=== PATIENT | female | born 1950 | race Caucasian/White ===

== ENCOUNTER 2017-01-10 17:36 | Observation (INO) | payer MEDICARE, OTHER ==
[2017-01-10] MEDS ORDERED: MORPHINE 2 MG/ML SYRINGE IVP STA ×2 (18:28→22:09)
--- NOTE | 2017-01-10 18:31 | ED Physician Documentation ---
PD HPI ABD PAIN - Stated complaint Stated Complaint: ABD PX - Chief complaint Chief Complaint: Abd Pain - History obtained from History obtained from: Patient, Family () - History of Present Illness Timing - onset: Today (Developed epigastric pain this morning which worsened throughout the day moved to the right side. One small episode of emesis, no bowel movement today. 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 HEENT: Tonsil/Adenoidectomy - Present Medications Home Medications: Ambulatory Orders Medication Instructions Recorded Confirmed Alendronate [Fosamax] 70 mg PO DAILY 01/10/17 01/10/17 Estrogens, Conjugated [Premarin] 0.5 mg PO DAILY 01/10/17 01/10/17 Lamotrigine [Lamictal] 150 mg PO DAILY 01/10/17 01/10/17 Levothyroxine [Synthroid] 50 mcg PO DAILY 01/10/17 01/10/17 No Known Home Medications [No 01/10/17 01/10/17 Known Home Medications] Venlafaxine [Effexor] 75 mg PO DAILY 01/10/17 01/10/17 traZODone [Desyrel] 50 mg PO DAILY 01/10/17 01/10/17 - Allergies Allergies/Adverse Reactions: Allergies Allergy/AdvReac Type Severity Reaction Status Date / Time No Known Drug Allergies Allergy Verified 01/10/17 17:44 - Social History Does the pt smoke?: No Smoking Status: Never smoker Does the pt drink ETOH?: No Does the pt have substance abuse?: No - Family History Family history: reports: Non contributory PD ED PE NORMAL - Vitals Vital signs reviewed: Yes - General General: Alert and oriented X 3, No acute distress - HEENT HEENT: PERRL, EOMI - Neck Neck: Supple, no meningeal sign, No bony TTP - Cardiac Cardiac: RRR, No murmur - Respiratory Respiratory: No respiratory distress, Clear bilaterally - Abdomen Abdomen: Normal bowel sounds, Soft, Other (Tender right upper quadrant with positive Real sign, no other surgical signs.) - Back Back: No CVA TTP, No spinal TTP - Derm Derm: Normal color, Warm and dry - Extremities Extremities: No deformity, No tenderness to palpate, No edema, No calf tenderness / cord - Neuro Neuro: Alert and oriented X 3, Normal speech - Psych Psych: Normal mood, Normal affect Results - Vitals Vitals: Vital Signs - 24 hr 01/10/17 01/10/17 01/10/17 17:41 18:55 18:56 Temperature 36.6 C Heart Rate 78 78 Respiratory 22 18 Rate Blood Pressure 113/68 O2 Saturation 100 88 L 98 01/10/17 19:51 Temperature Heart Rate 75 Respiratory 18 Rate Blood Pressure O2 Saturation 100 Oxygen O2 Source Room air Oxygen Flow Rate 3 - Labs Labs: Laboratory Tests 01/10/17 01/10/17 01/10/17 18:30 18:30 20:10 WBC 13.0 H RBC 4.32 Hgb 13.4 Hct 39.0 MCV 90.2 MCH 31.1 H MCHC 34.5 RDW 12.4 Plt Count 254 MPV 7.9 Neut # Not Reportable Lymph # Not Reportable Talbot # Not Reportable Eos # Not Reportable Baso # Not Reportable Absolute Nucleated RBC Not Reportable Band Neuts % (Manual) 17 H Neutrophils # (Manual) 11.4 H Lymphocytes # (Manual) 1.2 L Monocytes # (Manual) 0.4 Nucleated RBCs Not Reportable Platelet Estimate NORMAL (130-450,000) RBC Morph Micro Appear NORMAL APPEARANCE Sodium 135 Potassium 3.5 Chloride 102 Carbon Dioxide 25 Anion Gap 8.0 BUN 11 Creatinine 0.6 Estimated GFR (MDRD) 99 Glucose 109 H Calcium 9.3 Total Bilirubin 0.9 AST 33 ALT 28 Alkaline Phosphatase 53 Total Protein 6.7 Albumin 4.6 Globulin 2.1 Albumin/Globulin Ratio 2.2 Lipase 38 Urine Color YELLOW Urine Clarity CLEAR Urine pH 6.5 Ur Specific Edison 1.020 Urine Protein NEGATIVE Urine Glucose (UA) NEGATIVE Urine Ketones >=80 H Urine Occult Blood NEGATIVE Urine Nitrite NEGATIVE Urine Bilirubin NEGATIVE Urine Urobilinogen 0.2 (NORMAL) Ur Leukocyte Esterase NEGATIVE Ur Microscopic Review NOT INDICATED Urine Culture Comments NOT INDICATED - Rads (name of study) RUQ sono Radiology: EMP read contemporaneously (pericholecystic fluid without stones or GB wall thickening.) Ct A/P Radiology: EMP read contemporaneously (Normal amount of fluid adjacent to the pancreatic head and duodenum, normal appendix, large colonic stool.) PD MEDICAL DECISION MAKING - ED course ED course: 66-year-old woman presents with acute abdominal pain, initial evaluation suggestive of biliary etiology but ultrasound negative for cholecystitis specifically. Noted to have leukocytosis with mild bandemia. Otherwise negative labs. CT results as shown. Case discussed with on-call surgeon, Dr. Schwab at 1015 p.m., agrees with Zosyn and inpatient observation. Spoke with Dr Marquez [id number]. Departure - Departure Disposition: ED Place in Observation Clinical Impression: Bandemia Abdominal pain Qualifiers: Abdominal location: upper abdomen, unspecified Qualified Code(s): R10.10 - Upper abdominal pain, unspecified Condition: Fair
[2017-01-10] MEDS ORDERED: MORPHINE 2 MG/ML SYRINGE ONE ×3 (18:36→22:20)
[2017-01-10] MEDS ORDERED: ONDANSETRON 4 MG/2 ML VIAL IVP STA ×2 (18:36→22:09)
[2017-01-10 18:37] LABS: EOSINOPHILS % (AUTO) 0.1 %; HGB - HEMOGLOBIN 13.4 g/dL (12.0-16.0); RED CELL DISTRIBUTION WIDTH 12.4 % (12.0-15.0)
[2017-01-10] MEDS ORDERED: ONDANSETRON 4 MG/2 ML VIAL ONE ×2 (18:37→22:20)
[2017-01-10 18:41] LABS: BASOPHILS % (AUTO) 0.2 %; LYMPHOCYTES % (AUTO) 3.8 %; MEAN CORPUSCULAR HEMOGLOBIN 31.1 pg (27.0-31.0); MEAN CORPUSCULAR HGB CONC 34.5 g/dL (32.0-36.0); MEAN CORPUSCULAR VOLUME 90.2 fL (81.0-99.0); MEAN PLATELET VOLUME 7.9 fL (7.9-10.8); MONOCYTES % (AUTO) 5.8 %; NEUTROPHILS % (AUTO) 90.1 %; RED BLOOD COUNT 4.32 10^6/uL (4.20-5.40)
[2017-01-10 18:51] LABS: ALBUMIN/GLOBULIN RATIO 2.2 (1.0-2.2); BILIRUBIN,TOTAL 0.9 mg/dL (0.2-1.0); CALCIUM 9.3 mg/dL (8.5-10.3); CREATININE 0.6 mg/dL (0.4-1.0); POTASSIUM 3.5 mmol/L (3.5-5.0); TOTAL PROTEIN 6.7 g/dL (6.7-8.2)
[2017-01-10 19:21] LABS: BAND NEUTROPHILS % (MANUAL) 17 %; LYMPHOCYTES % (MANUAL) 9 %; NEUTROPHILS % (MANUAL) 71 %; NP AUTO DIFFERENTIAL? YES; NP MAN DIFFERENTIAL? NO; PLATELET ESTIMATE, MANUAL NORMAL (130-450,000) (NORMAL)
[2017-01-10 20:15] LABS: PH,URINE 6.5 PH (5.0-7.5)
[2017-01-10 20:26] LABS: BILIRUBIN,URINE NEGATIVE (NEGATIVE); UA CHARGE (STRIP ONLY) YES; UR CULTURE IF IND NOT INDICATED
--- NOTE | 2017-01-10 20:27 | Ultrasound Preliminary Report ---
Exam: US Abdomen Limited IMPRESSION: Pericholecystic fluid. No cholelithiasis or gallbladder wall thickening. [facility] SITE ID: [id number]
--- NOTE | 2017-01-10 20:30 | Ultrasound Report ---
EXAM: ABDOMEN ULTRASOUND LIMITED, RUQ EXAM DATE: 01/10/2017 08:11 PM. CLINICAL HISTORY: RUQ TENDER TO PALPATION. NAUSEA. COMPARISON: None. TECHNIQUE: Real-time scanning was performed with static images obtained. FINDINGS: Liver: Normal in size and echotexture. 15.6 cm. Main portal vein flow: Hepatopetal. Gallbladder: Pericholecystic fluid noted. No stones, wall thickening, or sonographic Real's sign. Biliary System: CBD measures 6.6 mm. No intrahepatic or extrahepatic ductal dilatation. Other: Calcification in or adjacent to the uncinate process of the pancreas 1.2 x 1.4 x 1.6 cm, other wagner visualized pancreas and right kidney unremarkable. IMPRESSION: Pericholecystic fluid. No cholelithiasis or gallbladder wall thickening. [facility] Referring Provider Line: [phone] SITE ID: [id number]
[2017-01-10] MEDS ORDERED: IOPAMIDOL-300 100 ML VIAL IVP ONE (21:24)
--- NOTE | 2017-01-10 21:58 | CT Preliminary Report ---
Exam: CT Abdomen/Pelvis W/ IMPRESSION: 1. Small amount of fluid adjacent to the pancreas head and duodenum. Differential would include duode nitis and pancreatitis. Correlate for laboratory studies and presentation. 2. Normal appendix. Large amount as on the colon. No obstruction. [facility] SITE ID: [id number]
[2017-01-10] MEDS ORDERED: PIPERACILLIN/TAZOBACTAM 3.375 GM in SODIUM CHLORIDE 0.9% MINIBAG 100 ML IV STA (22:14)
[2017-01-10] MEDS ORDERED: PROCHLORPERAZINE 10 MG/2 ML VIAL IVP PRN (22:40)
[2017-01-10] MEDS ORDERED: MORPHINE 2 MG/ML SYRINGE IVP PRN (22:40)
[2017-01-10] MEDS ORDERED: ZOLPIDEM 5 MG TABLET PO PRN (22:40)
[2017-01-10] MEDS ORDERED: SODIUM CHLORIDE FLUSH 0.9% 10 ML SYRINGE IVP PRN (22:40)
[2017-01-10] MEDS ORDERED: ONDANSETRON 4 MG/2 ML VIAL IVP PRN (22:40)
[2017-01-10] MEDS ORDERED: oxyCODONE 5 MG TABLET PO PRN ×2 (22:40)
--- NOTE | 2017-01-10 22:50 | CT Report ---
EXAM: CT ABDOMEN AND PELVIS EXAM DATE: 01/10/2017 09:28 PM. CLINICAL HISTORY: IV only, right abdominal pain. COMPARISONS: 01/10/2017 abdominal ultrasound. TECHNIQUE: Routine helical CT imaging was performed through the abdomen and pelvis. IV contrast: 100 mL of Isovue-300. Enteric contrast: No. Reconstructions: Coronal and sagittal. In accordance with CT protocol optimization, one or more of the following dose reduction techniques w ere utilized for this exam: automated exposure control, adjustment of mA and/or KV based on patient s ize, or use of iterative reconstructive technique. FINDINGS: Lung Bases: Unremarkable. Liver: Calcification in the dome of the liver. No liver mass or intrahepatic bile duct dilation noted . Gallbladder/Bile Ducts: Small amount of pericholecystic fluid without definite gallbladder inflammati on or gallstones. Normal caliber common bile duct. Spleen: Normal. Pancreas: Small amount of fluid near the pancreas head and duodenum. No pancreatic mass, atrophy or c alcifications. Adrenal Glands: Normal. Kidneys: Normal. No masses or hydronephrosis. Peritoneal Cavity/Bowel: Small amount of fluid is noted near the pancreas head and uncinate process. No pneumoperitoneum, no pneumatosis or portal venous gas. Incidental duodenal diverticulum. Large eli unt of stool is present throughout the colon. The appendix is well visualized and normal. There are m ultiple diverticula seen which most severely affect the sigmoid colon. No wall thickening or adjacen t inflammation seen. No obstruction noted. Pelvic Organs: Normal. The bladder and visualized pelvic organs are within normal limits. Vasculature: No aneurysms or other significant abnormality. Bones: No significant abnormality. Other: None. IMPRESSION: 1. Small amount of fluid adjacent to the pancreas head and duodenum. Differential would include duode nitis and pancreatitis. Correlate with laboratory studies and presentation. 2. Normal appendix. Large amount of stool in the colon. No obstruction. [facility] Referring Provider Line: [phone] SITE ID: [id number]
[2017-01-11] MEDS: SODIUM CHLORIDE 0.9% 1,000 ML IV SCH ×3 (00:37→17:31)
[2017-01-11] MEDS: PANTOPRAZOLE 40 MG VIAL IVP SCH ×3 (00:39→16:07)
[2017-01-11] MEDS: traZODone 50 MG TABLET PO SCH ×2 (02:12→08:46)
[2017-01-11] MEDS: VENLAFAXINE 37.5 MG TABLET PO SCH ×2 (02:13→08:44)
--- NOTE | 2017-01-11 03:19 | HISTORY & PHYSICAL EXAMINATION ---
Chief Complaint - Chief Complaint Chief Complaint: abdominal pain History of Present Illness - Admitted From Admitted From:: emergency department - History Obtained From Records Reviewed: yes History obtained from: patient Exam Limitations: none - History of Present Illness HPI Comment/Other: Patient is a 66-year-old female with a past medical history significant for bipolar 2, hypothyroidism, osteoporosis, craniotomy with repair of brain aneurysm in 2008, history of polio in 1952 with no residual deficits and history of salpingo-oophorectomy secondary to ruptured ectopic who presented to the emergency department with a chief complaint of abdominal pain. She states that she woke up in the morning and felt as though she had a stomach ache. She thought it was most likely gas. She states that the pain was located in the epigastric region of the abdomen. She states that she had cereal and then walk her dogs she states that she had to and walk early because she did not feel well. When she returned home she states that the pain became more severe and moved into the right lower quadrant. She states that the pain remained in the lower abdomen and became sharp it was similar to the pain that she experienced when she had a ruptured ectopic. She states the pain was relentless and was a 9/ 10. She states it was a sharp pain and was associated with nausea she states that she tried to vomit but only got out clear materials. She states that she felt very cold but did not have any fevers. She denies having had any diarrhea she did have a normal bowel movement yesterday but has not had any bowel movements today. She denies any previous history of chronic abdominal pain. She denies any recent changes in her appetite she has had a 20 pound weight loss but this was intentional. She denies any recent stress. She states that she did used to drink 2 glasses of wine a night however she quit this about 2 months ago. She states that she does not smoke and does take a baby aspirin but no NSAIDs. She denies any dark stool she denies any bloody stools. She denies any hematemesis. She states that the pain became so severe that she decided to come to the emergency department. On presentation to the emergency department the patient was afebrile her vital signs were within normal limits however she was in a significant amount of abdominal pain. The patient received several doses of morphine which did help to alleviate the pain however the pain returned once the morphine wore off. Patient also continued to have nausea and received Zofran. The patient's lab work did not reveal any electrolyte abnormalities and UA was negative. The patient however did have a leukocytosis of 13,000 with a bandemia of 17%. The patient initially underwent an ultrasound of her abdomen which revealed pericholecystic fluid but no cholelithiasis or gallbladder wall thickening. The patient did have a calcification adjacent to uncinate process of the pancreas which was 1.2x1.4x1.6 cm in size. The patient then underwent a CT of her abdomen and pelvis which revealed a small amount of fluid adjacent to the pancreas head and duodenum. For which the differential included duodenitis and pancreatitis. The patient had normal lipase and amylase. Surgery was consult in the emergency department and asked that the hospitalist observe the patient overnight give her IV Zosyn, IV fluids, pain control and nausea control and monitor her closely. They asked that we recheck her CBC in the morning. Review of Systems - Constitutional Constitutional: reports: Poor appetite, Weight loss (Intentional). denies: Fever, Chills, Malaise, Weakness, Diaphoresis, Night sweats, Weight gain - Eyes Eyes: denies: Pain, Irritation, Amaurosis, Blurred vision, Spots in vision, Field loss, Vision loss, Dipolpia - Ears, Nose & Throat Ears, Nose & Throat: denies: Ear pain, Hearing loss, Hearing aids, Tinnitus, Vertigo, Nasal pain, Nasal discharge, Nasal congestion, Postnasal drainage, Sore throat, Hoarseness, Mouth lesions - Cardiovascular Cariovascular: denies: Irregular heart rate, Palpitations, Chest pain, Edema, Lightheadedness, Syncope, Exertional dyspnea, Decr. exercise tolerance, Orthopnea - Respiratory Respiratory: denies: Cough, Sputum production, Wheezing, Snoring, Hemoptysis, Orthopnea, SOB at rest, SOB with exertion, Pleuritic pain - Gastrointestinal Gastrointestinal: reports: Abdominal pain, Nausea, Vomiting. denies: Constipation, Diarrhea, Black stools, Bloody stools, Bile emesis, López blood emesis, Coffee grounds emesis, Reflux/heartburn, Bloating, Poor appetite - Genitourinary Genitourinary: denies: Dysuria, Frequency, Urgency, Hematuria, Incontinence, Flank pain, Nocturia - Musculoskeletal Musculoskeletal: denies: Muscle pain, Back pain, Muscle aches, Stiffness, Limited range of motion, Muscle weakness, Joint pain, Joint swelling - Integumentary Integumentary: denies: Rash, Pruritis, Lesions, Dryness - Neurological Neurological: denies: General weakness, Focal weakness, Headache, Dizziness, Numbness, Memory problems, Abnormal gait, Seizures - Psychiatric Psychiatric: denies: Depression, Anxiety - Endocrine Endocrine: denies: Polyuria, Polydypsia, Polyphagia, Intolerance to cold, Intolerance to heat - Hematologic/Lymphatic Hematologic/Lymphatic: denies: Anemia, Bruising, Petechiae History - Past Medical History Cardiovascular: reports: None Respiratory: reports: None Neuro: reports: Other (History of aneurysmal repair with craniotomy ) Endocrine/Autoimmune: reports: HyPOthyroidism GI: reports: Chronic constipation (secondary to meds) HEENT: reports: None Psych: reports: Bipolar disorder Musculoskeletal: reports: Osteoporosis Other Past Medical History: ectopic , bells palsy, polio - Past Surgical History 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 Social History Notes: Patient lives in [facility]. She is retired she lives with her . She has a daughter who lives in [place] and works as a nurse at [employer]. 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 She met her in [place] he is also a teacher. They talk together in [facility] and then in [place] [facility] for 8 years and then moved back to [facility]. The patient's daughter was born in [facility]. - Substance History Use: Uses substance without health or social issues: Alcohol (2 glasses of wine a night till a few months ago) Abuse: Recurrent use of substance despite neg consequences: NONE Dependence: Experiences withdrawal or developed tolerances: NONE - POLST Patient has POLST: No POLST Status: Full Code Meds/Allgy - Home Medications Home Medications: Ambulatory Orders Medication Instructions Recorded Confirmed Alendronate [Fosamax] 70 mg PO DAILY 01/10/17 01/10/17 Estrogens, Conjugated [Premarin] 0.5 mg PO DAILY 01/10/17 01/10/17 Lamotrigine [Lamictal] 150 mg PO DAILY 01/10/17 01/10/17 Levothyroxine [Synthroid] 50 mcg PO DAILY 01/10/17 01/10/17 No Known Home Medications [No 01/10/17 01/10/17 Known Home Medications] Venlafaxine [Effexor] 75 mg PO DAILY 01/10/17 01/10/17 traZODone [Desyrel] 50 mg PO DAILY 01/10/17 01/10/17 - Allergies Allergies/Adverse Reactions: Allergies Allergy/AdvReac Type Severity Reaction Status Date / Time No Known Drug Allergies Allergy Verified 01/10/17 17:44 Exam - Vital Signs Vital Signs: Vital Signs x48h Temp Pulse Pulse Resp BP BP Pulse Ox 01/11/17 00:19 36.8 C 81 17 105/60 95 01/10/17 22:59 82 18 99/54 L 100 - Physical Exam General Appearance: positive: Alert, Mild distress (Abdominal pain) Eyes Bilateral: positive: Normal inspection, PERRL, EOMI, No lid inflammation, Conjunctivae nml, No scleral icterus ENT: positive: ENT inspection nml, Pharynx nml, Dry mucous membranes. negative : Purulent nasal drainage, Pharyngeal erythema, Oral lesions Neck: positive: Nml inspection, Thyroid nml, No JVD, Trachea midline. negative : Thyromegaly, Lymphadenopathy (R), Lymphadenopathy (L) Respiratory: positive: Chest non-tender, No respiratory distress, Breath sounds nml. negative: Wheezes, Rales, Rhonchi Cardiovascular: positive: Regular rate & rhythm, No murmur, No gallop Peripheral Pulses: positive: 2+ Abdomen: positive: No organomegaly, Tenderness (Mostly in the lower abdoment below the umbilicus, no peritoneal signs), Abnml bowel sounds (Hypoactive). negative: Guarding, Rebound, Hepatomegaly, Splenomegaly Back: positive: Nml inspection Skin: positive: Color nml, No rash, Warm. negative: Cyanosis, Diaphoresis, Pallor Extremities: positive: Non-tender, Full ROM, Nml appearance, No pedal edema. negative: Calf tenderness Neurologic/Psychiatric: positive: Oriented x3, CN's nml (2-12), Motor nml, Sensation nml, Mood/affect nml Conclusion/Plan - Problem List (1) Abdominal pain Conclusion/Plan: Patient presented with acute onset of severe abdominal pain starting today located initially in the epigastric area moving down into the lower abdomen specifically the right lower quadrant. The patient had no fevers chills or diarrhea. No bowel movements today. Patient did have nausea and tried to vomit but did not have much material. Patient had leukocytosis with bandemia on presentation. Abdominal ultrasound showed calcification adjacent to the uncinate process of the pancreas but no signs of acute cholecystitis. CT abdomen showed possible pancreatitis or duodenitis. Patient had normal amylase lipase and electrolytes. Surgery was consult and then recommended observation of the patient with close monitoring IV fluids keeping her n.p.o. and giving her IV antibiotics. Differential diagnosis for patient includes possible duodenitis with infection or ulcer, unlikely pancreatitis, possibility of pancreatic malignancy although very unlikely with this presentation. Possible gastroenteritis. Possible acalculous cholecystitis or illeus Plan: Observe patient closely N.p.o. IV fluids IV pain control with morphine IV antiemetics IV Zosyn to treat possible duodenitis IV Protonix Surgical consult for possible EGD inpatient versus outpatient Repeat labs in the a.m. Will consider MRCP if no improvement Qualifiers: Abdominal location: lower abdomen, unspecified Qualified Code(s): R10.30 - Lower abdominal pain, unspecified (2) Hypothyroidism Conclusion/Plan: History of hypothyroidism on Synthroid at home. We'll continue home dose of Synthroid and check TSH. (3) Bipolar 2 disorder Conclusion/Plan: History of bipolar currently stable on medications. Continue all medications Patient does have chronic constipation secondary to her meds but unlikely the cause of the current symptoms. (4) Prophylactic use of low molecular weight heparin for venous thromboembolism Conclusion/Plan: placed on Lovenox while hospitalized - Lab Results Lab results reviewed: Yes Fish Bones: 01/10/17 18:30 01/10/17 18:30 - Diagnostic Imaging Results Diagnostic Imaging Results: positive: Final report reviewed Issues/Core Measures - Anticipated LOS Anticipated Stay Length: Less than 2 midnights - DVT/VTE - Prophylaxis VTE/DVT Prophylaxis med ordered at admit?: Yes
[2017-01-11] MEDS: PIPERACILLIN/TAZOBACTAM 3.375 GM in SODIUM CHLORIDE 0.9% MINIBAG 100 ML IV SCH ×4 (04:07→21:30)
[2017-01-11 05:37] LABS: BASOPHILS % (AUTO) 0.4 %; HCT - HEMATOCRIT 36.2 % (37.0-47.0); HGB - HEMOGLOBIN 12.4 g/dL (12.0-16.0); LYMPHOCYTES # (AUTO) 0.9 10^3/uL (1.5-3.5); LYMPHOCYTES % (AUTO) 9.1 %; MEAN CORPUSCULAR HEMOGLOBIN 31.3 pg (27.0-31.0); MEAN CORPUSCULAR HGB CONC 34.1 g/dL (32.0-36.0); MEAN CORPUSCULAR VOLUME 91.6 fL (81.0-99.0); MEAN PLATELET VOLUME 8.1 fL (7.9-10.8); MONOCYTES # (AUTO) 0.7 10^3/uL (0.0-1.0); MONOCYTES % (AUTO) 7.7 %; NEUTROPHILS # (AUTO) 7.9 10^3/uL (1.5-6.6); NEUTROPHILS % (AUTO) 82.8 %; RED BLOOD COUNT 3.95 10^6/uL (4.20-5.40); RED CELL DISTRIBUTION WIDTH 12.9 % (12.0-15.0); UNCORRECTED WHITE BLOOD COUNT 9.5 x10^3/uL; WHITE BLOOD COUNT 9.5 x10^3/uL (4.8-10.8)
[2017-01-11 05:55] LABS: ALBUMIN/GLOBULIN RATIO 1.7 (1.0-2.2); CALCIUM 8.3 mg/dL (8.5-10.3); CREATININE 0.8 mg/dL (0.4-1.0); MAGNESIUM 1.8 mg/dL (1.7-2.8); PHOSPHORUS 3.9 mg/dL (2.5-4.6); POTASSIUM 3.6 mmol/L (3.5-5.0); TOTAL PROTEIN 5.7 g/dL (6.7-8.2)
[2017-01-11 06:02] LABS: INR 1.1 (0.8-1.2); PT - PROTHROMBIN TIME 12.5 secs (9.9-12.6)
[2017-01-11] MEDS: ACETAMINOPHEN 325 MG TABLET PO PRN ×3 (06:17→17:31)
[2017-01-11] MEDS: LEVOTHYROXINE 25 MCG TABLET PO SCH (06:17)
[2017-01-11] MEDS: SODIUM CHLORIDE FLUSH 0.9% 10 ML SYRINGE IVP SCH ×3 (06:18→21:30)
--- NOTE | 2017-01-11 07:47 | PROVIDER PROGRESS NOTE ---
Assessment/Plan - Problem List (1) Abdominal pain Qualifiers: Abdominal location: epigastric Qualified Code(s): R10.13 - Epigastric pain Assessment/Plan: improving. MRCP showed possible pancreatitis. continue with IV pain medication and advance diet as tolerated. continue with IVF for hydration (2) Bipolar 2 disorder Assessment/Plan: chronic. continue on effexor and home medication for bipolar (3) Hypothyroidism Qualifiers: Hypothyroidism type: acquired Qualified Code(s): E03.9 - Hypothyroidism, unspecified Assessment/Plan: chronic. continue on synthroid home dosage - Current Meds Current Meds: Current Medications Generic Name Dose Route Start Last Admin Trade Name Freq PRN Reason Stop Dose Admin Acetaminophen 650 mg 01/10/17 22:40 01/11/17 06:17 Tylenol PO 650 mg Q4HR PRN Administration Pain 1 to 4 Sodium Chloride 1,000 mls @ 125 mls/hr 01/10/17 23:00 01/11/17 00:37 Normal Saline 0.9% IV 125 mls/hr .Q8H FREDDY Administration Piperacillin Sod/Tazobactam 100 mls @ 200 mls/hr 01/11/17 04:00 01/11/17 04:07 Sod 3.375 gm/ Sodium Chloride IV 200 mls/hr Q6H FREDDY Administration Levothyroxine Sodium 50 mcg 01/11/17 07:00 01/11/17 06:17 Synthroid PO 50 mcg QDAC FREDDY Administration Pantoprazole Sodium 40 mg 01/10/17 23:00 01/11/17 06:17 Protonix IVP 40 mg BIDAC FREDDY Administration Sodium Chloride 10 ml 01/10/17 22:40 01/11/17 00:37 Normal Saline Flush 0.9% IVP 10 ml PRN PRN Administration NEEDED PER PROVIDER ORDERS Sodium Chloride 10 ml 01/11/17 06:00 01/11/17 06:18 Normal Saline Flush 0.9% IVP 10 ml Q8HR FREDDY Administration Trazodone HCl 50 mg 01/11/17 01:30 01/11/17 02:12 Desyrel PO 50 mg DAILY FREDDY Administration Venlafaxine HCl 75 mg 01/11/17 01:30 01/11/17 02:13 Effexor PO 75 mg DAILY FREDDY Administration - Lab Result Lab results reviewed: Yes Fish Bone Diagrams: 01/12/17 05:34 01/12/17 05:34 Other Lab Results: Abnormal Lab Results 01/10/17 01/10/17 01/10/17 18:30 18:30 20:10 WBC 13.0 x10^3/uL H x10^3/uL (4.8-10.8) RBC Hct MCH 31.1 pg H pg (27.0-31.0) Neut # Lymph # Band Neuts % (Manual) 17 % H % (0 - 10) Neutrophils # (Manual) 11.4 10^3/uL H 10^3/uL (1.5-6.6) Lymphocytes # (Manual) 1.2 10^3/uL L 10^3/uL (1.5-3.5) Estimated GFR (MDRD) Glucose 109 mg/dL H mg/dL (70-100) Calcium C-Reactive Protein Total Protein Urine Ketones >=80 mg/dL H mg/dL (NEGATIVE) 01/11/17 01/11/17 05:25 05:25 WBC RBC 3.95 10^6/uL L 10^6/uL (4.20-5.40) Hct 36.2 % L % (37.0-47.0) MCH 31.3 pg H pg (27.0-31.0) Neut # 7.9 10^3/uL H 10^3/uL (1.5-6.6) Lymph # 0.9 10^3/uL L 10^3/uL (1.5-3.5) Band Neuts % (Manual) Neutrophils # (Manual) Lymphocytes # (Manual) Estimated GFR (MDRD) 71 L (>89) Glucose 123 mg/dL H mg/dL (70-100) Calcium 8.3 mg/dL L mg/dL (8.5-10.3) C-Reactive Protein 6.9 mg/dL H mg/dL (0-1.0) Total Protein 5.7 g/dL L g/dL (6.7-8.2) Urine Ketones - EKG Results EKG Interpreted Independently: No - Additional Planning Condition/Complexity: Improved My Orders: My Active Orders 01/11/17 05:25 AMYLASE [CHEM] Stat GAMMA GLUTAMYL TRANSPEPTIDASE [CHEM] Stat 01/11/17 07:33 NPO [DIET] MRCP W/O [MRI] Stat 01/11/17 07:44 A1C [CHEM] Routine Consult/Specialty: OT, PT, Surgery Plan Discussed with:: Patient, Spouse, Case Management Time Spent: 31-60 minutes Additional Planning Notes: Patient on observation and will need 24 hour stay. further diagnostics pending and IV medication for pain. Subjective - Subjective Patient Reports: Feeling Better, Resting Comfortably, No Complaints Nursing Reports: No Complaints, Pain (upper abdomen with mild nausea) Objective Vital Signs: Vital Signs - 24 hr 01/10/17 01/11/17 01/11/17 22:59 00:19 05:40 Temperature 36.8 C 36.7 C Heart Rate 82 Heart Rate [ 81 80 Brachial] Respiratory 18 17 16 Rate Blood Pressure 99/54 L Blood Pressure 105/60 106/70 [Right Brachial artery] O2 Saturation 100 95 99 Oxygen O2 Source Room air Oxygen Flow Rate 2 I&O (Last 24 Hrs): Intake and Output Totals x24h 01/09/17 01/10/17 01/11/17 23:59 23:59 23:59 Intake Total 100 787 Output Total 200 Balance 100 587 General: Alert, Oriented x3, Cooperative, No acute distress HEENT: Atraumatic, PERRLA Neck: Supple, No JVD Lymphatic: no adenopathy Neuro: Alert, CN 2-12 Grossly Intact, Oriented Times 3 Cardiovascular: Regular rate, Normal S1, Normal S2, No murmurs Respiratory: Chest non-tender, No respiratory distress, Breath sounds nml Abdomen: Normal bowel sounds, Soft, No hepatospenomegaly Extremities: No clubbing, No cyanosis, No edema, Normal pulses, No tenderness/ swelling Skin: No rashes, No breakdown, No significant lesion - Results Results: Laboratory Results WBC 9.5 x10^3/uL (4.8-10.8) 01/11/17 05:25 RBC 3.95 10^6/uL (4.20-5.40) L 01/11/17 05:25 Hgb 12.4 g/dL (12.0-16.0) 01/11/17 05:25 Hct 36.2 % (37.0-47.0) L 01/11/17 05:25 MCV 91.6 fL (81.0-99.0) 01/11/17 05:25 MCH 31.3 pg (27.0-31.0) H 01/11/17 05:25 MCHC 34.1 g/dL (32.0-36.0) 01/11/17 05:25 RDW 12.9 % (12.0-15.0) 01/11/17 05:25 Plt Count 254 10^3/uL (130-450) 01/11/17 05:25 MPV 8.1 fL (7.9-10.8) 01/11/17 05:25 Neut # 7.9 10^3/uL (1.5-6.6) H 01/11/17 05:25 Lymph # 0.9 10^3/uL (1.5-3.5) L 01/11/17 05:25 [place] # 0.7 10^3/uL (0.0-1.0) 01/11/17 05:25 Eos # 0.0 10^3/uL (0.0-0.7) 01/11/17 05:25 Baso # 0.0 10^3/uL (0.0-0.1) 01/11/17 05:25 Absolute Nucleated RBC 0.00 x10^3/uL 01/11/17 05:25 Band Neuts % (Manual) 17 % (0-10) H 01/10/17 18:30 Neutrophils # (Manual) 11.4 10^3/uL (1.5-6.6) H 01/10/17 18:30 Lymphocytes # (Manual) 1.2 10^3/uL (1.5-3.5) L 01/10/17 18:30 Monocytes # (Manual) 0.4 10^3/uL (0.0-1.0) 01/10/17 18:30 Nucleated RBCs 0.0 /100WBC 01/11/17 05:25 Platelet Estimate NORMAL (130-450,000) (NORMAL) 01/10/17 18:30 RBC Morph Micro Appear NORMAL APPEARANCE (NORMAL) 01/10/17 18:30 ESR 14 mm/Hr (0-30) 01/11/17 05:25 PT 12.5 secs (9.9-12.6) 01/11/17 05:25 INR 1.1 (0.8-1.2) 01/11/17 05:25 Sodium 136 mmol/L (135-145) 01/11/17 05:25 Potassium 3.6 mmol/L (3.5-5.0) 01/11/17 05:25 Chloride 103 mmol/L (101-111) 01/11/17 05:25 Carbon Dioxide 26 mmol/L (21-32) 01/11/17 05:25 Anion Gap 7.0 (6-13) 01/11/17 05:25 BUN 11 mg/dL (6-20) 01/11/17 05:25 Creatinine 0.8 mg/dL (0.4-1.0) 01/11/17 05:25 Estimated GFR (MDRD) 71 (>89) L 01/11/17 05:25 Glucose 123 mg/dL (70-100) H 01/11/17 05:25 Lactic Acid 0.6 mmol/L (0.5-2.2) 01/11/17 05:25 Calcium 8.3 mg/dL (8.5-10.3) L 01/11/17 05:25 Phosphorus 3.9 mg/dL (2.5-4.6) 01/11/17 05:25 Magnesium 1.8 mg/dL (1.7-2.8) 01/11/17 05:25 Total Bilirubin 1.0 mg/dL (0.2-1.0) 01/11/17 05:25 AST 36 IU/L (10-42) 01/11/17 05:25 ALT 33 IU/L (10-60) 01/11/17 05:25 Alkaline Phosphatase 43 IU/L (42-121) 01/11/17 05:25 C-Reactive Protein 6.9 mg/dL (0-1.0) H 01/11/17 05:25 Total Protein 5.7 g/dL (6.7-8.2) L 01/11/17 05:25 Albumin 3.6 g/dL (3.2-5.5) 01/11/17 05:25 Globulin 2.1 g/dL (2.1-4.2) 01/11/17 05:25 Albumin/Globulin Ratio 1.7 (1.0-2.2) 01/11/17 05:25 Lipase 38 U/L (22-51) 01/10/17 18:30 TSH 0.96 uIU/mL (0.34-5.60) 01/11/17 05:25 Urine Color YELLOW 01/10/17 20:10 Urine Clarity CLEAR (CLEAR) 01/10/17 20:10 Urine pH 6.5 PH (5.0-7.5) 01/10/17 20:10 Ur Specific [place] 1.020 (1.002-1.030) 01/10/17 20:10 Urine Protein NEGATIVE mg/dL (NEGATIVE) 01/10/17 20:10 Urine Glucose (UA) NEGATIVE mg/dL (NEGATIVE) 01/10/17 20:10 Urine Ketones >=80 mg/dL (NEGATIVE) H 01/10/17 20:10 Urine Occult Blood NEGATIVE (NEGATIVE) 01/10/17 20:10 Urine Nitrite NEGATIVE (NEGATIVE) 01/10/17 20:10 Urine Bilirubin NEGATIVE (NEGATIVE) 01/10/17 20:10 Urine Urobilinogen 0.2 (NORMAL) E.U./dL (NORMAL) 01/10/17 20:10 Ur Leukocyte Esterase NEGATIVE (NEGATIVE) 01/10/17 20:10 Ur Microscopic Review NOT INDICATED 01/10/17 20:10 Urine Culture Comments NOT INDICATED 01/10/17 20:10
[2017-01-11 07:53] LABS: AMYLASE 89 U/L (28-100)
[2017-01-11 08:10] LABS: HEMOGLOBIN A1C 0.38 g/dL
[2017-01-11] MEDS: lamoTRIgine 100 MG TABLET PO SCH (08:44)
[2017-01-11] MEDS: ENOXAPARIN 40 MG/0.4 ML SYRINGE SUBQ SCH (08:45)
[2017-01-11] MEDS: CALCIUM CITRATE 250 MG TABLET PO SCH ×2 (08:45→21:31)
[2017-01-11] MEDS: POLYETHYLENE GLYCOL 3350 17 GM PACKET PO SCH (08:45)
[2017-01-11] MEDS ORDERED: ESTROGENS CONJUGATED PO SCH (09:00)
[2017-01-11] MEDS ORDERED: ALENDRONATE 70 MG TABLET PO SCH (09:00)
[2017-01-11] MEDS ORDERED: traZODone 50 MG TABLET PO SCH ×2 (09:00→21:00)
[2017-01-11] MEDS ORDERED: CHOLECALCIFEROL 1,000 UNIT TABLET PO SCH (09:00)
[2017-01-11] MEDS ORDERED: VENLAFAXINE 37.5 MG TABLET PO SCH (09:00)
--- NOTE | 2017-01-11 11:07 | MRI Preliminary Report ---
Exam: MRI MRCP W/O IMPRESSION: 1. Mild edema adjacent to pancreatic head compatible with pancreatitis. 2. Descending duodenal diverticulum effaces distal CBD. No choledocholithiasis or significant biliary ductal dilatation. 3. Distended gallbladder. No evidence for gallstone or wall thickening. [facility] SITE ID: [id number]
--- NOTE | 2017-01-11 11:09 | MRI Report ---
EXAM: MR ABDOMEN WITHOUT CONTRAST (MR CHOLANGIOPANCREATOGRAPHY) EXAM DATE: 01/11/2017 10:35 AM. CLINICAL HISTORY: Possible pancreatitis or cholecystitis. Recent right-sided abdominal pain. COMPARISON: Abdominal CT 01/10/2017. TECHNIQUE: Multiplanar breath-hold T1 and T2 sequences obtained through the abdomen on an MR scanner. Dedicated 2D and 3D MRCP sequences obtained through the biliary and pancreatic ducts. No intravenous contrast given. FINDINGS: Lung Bases: The lung bases are clear. Liver: The liver has normal size, morphology and signal. No evidence of mass. The intrahepatic bile d ucts appear normal. CBD: The distal CBD is effaced by a descending duodenal diverticulum. The CBD is 7 mm in diameter, wi thin normal limits for age. Gallbladder: The gallbladder is distended. No wall thickening or stone. Pancreas: Mild edema adjacent to pancreatic head, compatible with pancreatitis. No pseudocyst. The pa ncreatic duct measures 1-2 mm in diameter and appears normal with no stone or stricture. A descending duodenal diverticulum projects into the pancreatic head region. Spleen: The spleen appears normal. Kidneys and Adrenals: The kidneys appear normal with no mass or hydronephrosis. The adrenals appear n ormal. Bowel: The small bowel and colon appear normal with no inflammation or obstruction. Retroperitoneum: The retroperitoneal structures appear normal with no mass or lymphadenopathy. IMPRESSION: 1. Mild edema adjacent to pancreatic head compatible with pancreatitis. 2. Descending duodenal diverticulum effaces distal CBD. No choledocholithiasis or significant biliary ductal dilatation. 3. Distended gallbladder. No evidence for gallstone or wall thickening. [facility] Referring Provider Line: [phone] SITE ID: [id number]
--- NOTE | 2017-01-11 14:29 | PROVIDER PROGRESS NOTE ---
Assessment/Plan - Problem List (1) Abdominal pain Qualifiers: Abdominal location: lower abdomen, unspecified Qualified Code(s): R10.30 - Lower abdominal pain, unspecified Assessment/Plan: 66 yo female with abdominal pain likely pancreatitis, from unknown source. Recommend advancing to clears, Pain control Lipid panel Recommended to patient that she should consider having her gallbladder surgically removed as a possible source for pancreatitis are gallstones - Current Meds Current Meds: Current Medications Generic Name Dose Route Start Last Admin Trade Name Freq PRN Reason Stop Dose Admin Acetaminophen 650 mg 01/10/17 22:40 01/11/17 13:32 Tylenol PO 650 mg Q4HR PRN Administration Pain 1 to 4 Calcium Citrate 500 mg 01/11/17 09:00 01/11/17 08:45 PO 500 mg BID FREDDY Administration Cholecalciferol 1,000 unit 01/11/17 09:00 01/11/17 08:44 Vitamin D3 PO 1,000 unit DAILY FREDDY Administration Enoxaparin Sodium 40 mg 01/11/17 09:00 01/11/17 08:45 Lovenox SUBQ 40 mg DAILY FREDDY Administration Sodium Chloride 1,000 mls @ 125 mls/hr 01/10/17 23:00 01/11/17 08:48 Normal Saline 0.9% IV 125 mls/hr .Q8H FREDDY Administration Piperacillin Sod/Tazobactam 100 mls @ 200 mls/hr 01/11/17 04:00 01/11/17 10:37 Sod 3.375 gm/ Sodium Chloride IV 200 mls/hr Q6H FREDDY Administration Lamotrigine 150 mg 01/11/17 09:00 01/11/17 08:44 Lamictal PO 150 mg DAILY FREDDY Administration Levothyroxine Sodium 50 mcg 01/11/17 07:00 01/11/17 06:17 Synthroid PO 50 mcg QDAC FREDDY Administration Pantoprazole Sodium 40 mg 01/10/17 23:00 01/11/17 06:17 Protonix IVP 40 mg BIDAC FREDDY Administration Polyethylene Glycol 17 gm 01/11/17 09:00 01/11/17 08:45 Miralax PO 17 gm DAILY FREDDY Administration Sodium Chloride 10 ml 01/10/17 22:40 01/11/17 00:37 Normal Saline Flush 0.9% IVP 10 ml PRN PRN Administration NEEDED PER PROVIDER ORDERS Sodium Chloride 10 ml 01/11/17 06:00 01/11/17 13:36 Normal Saline Flush 0.9% IVP Not Given Q8HR FREDDY Venlafaxine HCl 75 mg 01/11/17 01:30 01/11/17 08:44 Effexor PO 75 mg DAILY FREDDY Administration - Lab Result Fish Bone Diagrams: 01/11/17 05:25 01/11/17 05:25 - Diagnostic Imaging Results Diagnostic Imaging Results: positive: Read contemporaneously (duodenal diverticuli with pancreatitis) Subjective - Subjective Patient Reports: Feeling Better (Pt seen at bedside, states that she feels better, with mild pain. No other issues.) Nursing Reports: No Complaints Objective Vital Signs: Vital Signs - 24 hr 01/10/17 01/11/17 01/11/17 22:59 00:19 05:40 Temperature 36.8 C 36.7 C Heart Rate 82 Heart Rate [ 81 80 Brachial] Respiratory 18 17 16 Rate Blood Pressure 99/54 L Blood Pressure 105/60 106/70 [Right Brachial artery] O2 Saturation 100 95 99 01/11/17 01/11/17 08:49 12:13 Temperature 37.3 C 36.8 C Heart Rate Heart Rate [ 65 66 Brachial] Respiratory 18 18 Rate Blood Pressure Blood Pressure 111/55 L 97/59 L [Right Brachial artery] O2 Saturation 94 92 Oxygen O2 Source Room air Oxygen Flow Rate 2 I&O (Last 24 Hrs): Intake and Output Totals x24h 01/09/17 01/10/17 01/11/17 23:59 23:59 23:59 Intake Total 100 1582 Output Total 500 Balance 100 1082 General: Oriented x3 Cardiovascular: Regular rate Respiratory: Breath sounds nml Abdomen: Normal bowel sounds (+ BS, ND, mild, no rebound or guarding) - Results Results: Laboratory Results WBC 9.5 x10^3/uL (4.8-10.8) 01/11/17 05:25 RBC 3.95 10^6/uL (4.20-5.40) L 01/11/17 05:25 Hgb 12.4 g/dL (12.0-16.0) 01/11/17 05:25 Hct 36.2 % (37.0-47.0) L 01/11/17 05:25 MCV 91.6 fL (81.0-99.0) 01/11/17 05:25 MCH 31.3 pg (27.0-31.0) H 01/11/17 05:25 MCHC 34.1 g/dL (32.0-36.0) 01/11/17 05:25 RDW 12.9 % (12.0-15.0) 01/11/17 05:25 Plt Count 254 10^3/uL (130-450) 01/11/17 05:25 MPV 8.1 fL (7.9-10.8) 01/11/17 05:25 Neut # 7.9 10^3/uL (1.5-6.6) H 01/11/17 05:25 Lymph # 0.9 10^3/uL (1.5-3.5) L 01/11/17 05:25 Bertie # 0.7 10^3/uL (0.0-1.0) 01/11/17 05:25 Eos # 0.0 10^3/uL (0.0-0.7) 01/11/17 05:25 Baso # 0.0 10^3/uL (0.0-0.1) 01/11/17 05:25 Absolute Nucleated RBC 0.00 x10^3/uL 01/11/17 05:25 Band Neuts % (Manual) 17 % (0-10) H 01/10/17 18:30 Neutrophils # (Manual) 11.4 10^3/uL (1.5-6.6) H 01/10/17 18:30 Lymphocytes # (Manual) 1.2 10^3/uL (1.5-3.5) L 01/10/17 18:30 Monocytes # (Manual) 0.4 10^3/uL (0.0-1.0) 01/10/17 18:30 Nucleated RBCs 0.0 /100WBC 01/11/17 05:25 Platelet Estimate NORMAL (130-450,000) (NORMAL) 01/10/17 18:30 RBC Morph Micro Appear NORMAL APPEARANCE (NORMAL) 01/10/17 18:30 ESR 14 mm/Hr (0-30) 01/11/17 05:25 PT 12.5 secs (9.9-12.6) 01/11/17 05:25 INR 1.1 (0.8-1.2) 01/11/17 05:25 Sodium 136 mmol/L (135-145) 01/11/17 05:25 Potassium 3.6 mmol/L (3.5-5.0) 01/11/17 05:25 Chloride 103 mmol/L (101-111) 01/11/17 05:25 Carbon Dioxide 26 mmol/L (21-32) 01/11/17 05:25 Anion Gap 7.0 (6-13) 01/11/17 05:25 BUN 11 mg/dL (6-20) 01/11/17 05:25 Creatinine 0.8 mg/dL (0.4-1.0) 01/11/17 05:25 Estimated GFR (MDRD) 71 (>89) L 01/11/17 05:25 Glucose 123 mg/dL (70-100) H 01/11/17 05:25 Glycated Hemoglobin 5.0 % (4.6-6.2) 01/11/17 05:25 Estim Average Glucose 97 (70-100) 01/11/17 05:25 Lactic Acid 0.6 mmol/L (0.5-2.2) 01/11/17 05:25 Calcium 8.3 mg/dL (8.5-10.3) L 01/11/17 05:25 Phosphorus 3.9 mg/dL (2.5-4.6) 01/11/17 05:25 Magnesium 1.8 mg/dL (1.7-2.8) 01/11/17 05:25 Total Bilirubin 1.0 mg/dL (0.2-1.0) 01/11/17 05:25 GGT 15 IU/L (8-38) 01/11/17 05:25 AST 36 IU/L (10-42) 01/11/17 05:25 ALT 33 IU/L (10-60) 01/11/17 05:25 Alkaline Phosphatase 43 IU/L (42-121) 01/11/17 05:25 C-Reactive Protein 6.9 mg/dL (0-1.0) H 01/11/17 05:25 Total Protein 5.7 g/dL (6.7-8.2) L 01/11/17 05:25 Albumin 3.6 g/dL (3.2-5.5) 01/11/17 05:25 Globulin 2.1 g/dL (2.1-4.2) 01/11/17 05:25 Albumin/Globulin Ratio 1.7 (1.0-2.2) 01/11/17 05:25 Amylase 89 U/L (28-100) 01/11/17 05:25 Lipase 38 U/L (22-51) 01/10/17 18:30 TSH 0.96 uIU/mL (0.34-5.60) 01/11/17 05:25 Urine Color YELLOW 01/10/17 20:10 Urine Clarity CLEAR (CLEAR) 01/10/17 20:10 Urine pH 6.5 PH (5.0-7.5) 01/10/17 20:10 Ur Specific [place] 1.020 (1.002-1.030) 01/10/17 20:10 Urine Protein NEGATIVE mg/dL (NEGATIVE) 01/10/17 20:10 Urine Glucose (UA) NEGATIVE mg/dL (NEGATIVE) 01/10/17 20:10 Urine Ketones >=80 mg/dL (NEGATIVE) H 01/10/17 20:10 Urine Occult Blood NEGATIVE (NEGATIVE) 01/10/17 20:10 Urine Nitrite NEGATIVE (NEGATIVE) 01/10/17 20:10 Urine Bilirubin NEGATIVE (NEGATIVE) 01/10/17 20:10 Urine Urobilinogen 0.2 (NORMAL) E.U./dL (NORMAL) 01/10/17 20:10 Ur Leukocyte Esterase NEGATIVE (NEGATIVE) 01/10/17 20:10 Ur Microscopic Review NOT INDICATED 01/10/17 20:10 Urine Culture Comments NOT INDICATED 01/10/17 20:10
--- NOTE | 2017-01-11 14:33 | PROVIDER PROGRESS NOTE ---
Assessment/Plan - Problem List (1) Abdominal pain Qualifiers: Abdominal location: lower abdomen, unspecified Qualified Code(s): R10.30 - Lower abdominal pain, unspecified Assessment/Plan: 66 yo female with presumed pancreatitis of unknown origin. - Current Meds Current Meds: Current Medications Generic Name Dose Route Start Last Admin Trade Name Freq PRN Reason Stop Dose Admin Acetaminophen 650 mg 01/10/17 22:40 01/11/17 13:32 Tylenol PO 650 mg Q4HR PRN Administration Pain 1 to 4 Calcium Citrate 500 mg 01/11/17 09:00 01/11/17 08:45 PO 500 mg BID FREDDY Administration Cholecalciferol 1,000 unit 01/11/17 09:00 01/11/17 08:44 Vitamin D3 PO 1,000 unit DAILY FREDDY Administration Enoxaparin Sodium 40 mg 01/11/17 09:00 01/11/17 08:45 Lovenox SUBQ 40 mg DAILY FREDDY Administration Sodium Chloride 1,000 mls @ 125 mls/hr 01/10/17 23:00 01/11/17 08:48 Normal Saline 0.9% IV 125 mls/hr .Q8H FREDDY Administration Piperacillin Sod/Tazobactam 100 mls @ 200 mls/hr 01/11/17 04:00 01/11/17 10:37 Sod 3.375 gm/ Sodium Chloride IV 200 mls/hr Q6H FREDDY Administration Lamotrigine 150 mg 01/11/17 09:00 01/11/17 08:44 Lamictal PO 150 mg DAILY FREDDY Administration Levothyroxine Sodium 50 mcg 01/11/17 07:00 01/11/17 06:17 Synthroid PO 50 mcg QDAC FREDDY Administration Pantoprazole Sodium 40 mg 01/10/17 23:00 01/11/17 06:17 Protonix IVP 40 mg BIDAC FREDDY Administration Polyethylene Glycol 17 gm 01/11/17 09:00 01/11/17 08:45 Miralax PO 17 gm DAILY FREDDY Administration Sodium Chloride 10 ml 01/10/17 22:40 01/11/17 00:37 Normal Saline Flush 0.9% IVP 10 ml PRN PRN Administration NEEDED PER PROVIDER ORDERS Sodium Chloride 10 ml 01/11/17 06:00 01/11/17 13:36 Normal Saline Flush 0.9% IVP Not Given Q8HR FREDDY Venlafaxine HCl 75 mg 01/11/17 01:30 01/11/17 08:44 Effexor PO 75 mg DAILY FREDDY Administration - Lab Result Fish Bone Diagrams: 01/11/17 05:25 01/11/17 05:25 - Additional Planning My Orders: My Active Orders 01/11/17 05:25 LIPID Panel [CHEM] Routine Objective Vital Signs: Vital Signs - 24 hr 01/10/17 01/11/17 01/11/17 22:59 00:19 05:40 Temperature 36.8 C 36.7 C Heart Rate 82 Heart Rate [ 81 80 Brachial] Respiratory 18 17 16 Rate Blood Pressure 99/54 L Blood Pressure 105/60 106/70 [Right Brachial artery] O2 Saturation 100 95 99 01/11/17 01/11/17 08:49 12:13 Temperature 37.3 C 36.8 C Heart Rate Heart Rate [ 65 66 Brachial] Respiratory 18 18 Rate Blood Pressure Blood Pressure 111/55 L 97/59 L [Right Brachial artery] O2 Saturation 94 92 Oxygen O2 Source Room air Oxygen Flow Rate 2 I&O (Last 24 Hrs): Intake and Output Totals x24h 01/09/17 01/10/17 01/11/17 23:59 23:59 23:59 Intake Total 100 1582 Output Total 500 Balance 100 1082 - Results Results: Laboratory Results WBC 9.5 x10^3/uL (4.8-10.8) 01/11/17 05:25 RBC 3.95 10^6/uL (4.20-5.40) L 01/11/17 05:25 Hgb 12.4 g/dL (12.0-16.0) 01/11/17 05:25 Hct 36.2 % (37.0-47.0) L 01/11/17 05:25 MCV 91.6 fL (81.0-99.0) 01/11/17 05:25 MCH 31.3 pg (27.0-31.0) H 01/11/17 05:25 MCHC 34.1 g/dL (32.0-36.0) 01/11/17 05:25 RDW 12.9 % (12.0-15.0) 01/11/17 05:25 Plt Count 254 10^3/uL (130-450) 01/11/17 05:25 MPV 8.1 fL (7.9-10.8) 01/11/17 05:25 Neut # 7.9 10^3/uL (1.5-6.6) H 01/11/17 05:25 Lymph # 0.9 10^3/uL (1.5-3.5) L 01/11/17 05:25 [place] # 0.7 10^3/uL (0.0-1.0) 01/11/17 05:25 Eos # 0.0 10^3/uL (0.0-0.7) 01/11/17 05:25 Baso # 0.0 10^3/uL (0.0-0.1) 01/11/17 05:25 Absolute Nucleated RBC 0.00 x10^3/uL 01/11/17 05:25 Band Neuts % (Manual) 17 % (0-10) H 01/10/17 18:30 Neutrophils # (Manual) 11.4 10^3/uL (1.5-6.6) H 01/10/17 18:30 Lymphocytes # (Manual) 1.2 10^3/uL (1.5-3.5) L 01/10/17 18:30 Monocytes # (Manual) 0.4 10^3/uL (0.0-1.0) 01/10/17 18:30 Nucleated RBCs 0.0 /100WBC 01/11/17 05:25 Platelet Estimate NORMAL (130-450,000) (NORMAL) 01/10/17 18:30 RBC Morph Micro Appear NORMAL APPEARANCE (NORMAL) 01/10/17 18:30 ESR 14 mm/Hr (0-30) 01/11/17 05:25 PT 12.5 secs (9.9-12.6) 01/11/17 05:25 INR 1.1 (0.8-1.2) 01/11/17 05:25 Sodium 136 mmol/L (135-145) 01/11/17 05:25 Potassium 3.6 mmol/L (3.5-5.0) 01/11/17 05:25 Chloride 103 mmol/L (101-111) 01/11/17 05:25 Carbon Dioxide 26 mmol/L (21-32) 01/11/17 05:25 Anion Gap 7.0 (6-13) 01/11/17 05:25 BUN 11 mg/dL (6-20) 01/11/17 05:25 Creatinine 0.8 mg/dL (0.4-1.0) 01/11/17 05:25 Estimated GFR (MDRD) 71 (>89) L 01/11/17 05:25 Glucose 123 mg/dL (70-100) H 01/11/17 05:25 Glycated Hemoglobin 5.0 % (4.6-6.2) 01/11/17 05:25 Estim Average Glucose 97 (70-100) 01/11/17 05:25 Lactic Acid 0.6 mmol/L (0.5-2.2) 01/11/17 05:25 Calcium 8.3 mg/dL (8.5-10.3) L 01/11/17 05:25 Phosphorus 3.9 mg/dL (2.5-4.6) 01/11/17 05:25 Magnesium 1.8 mg/dL (1.7-2.8) 01/11/17 05:25 Total Bilirubin 1.0 mg/dL (0.2-1.0) 01/11/17 05:25 GGT 15 IU/L (8-38) 01/11/17 05:25 AST 36 IU/L (10-42) 01/11/17 05:25 ALT 33 IU/L (10-60) 01/11/17 05:25 Alkaline Phosphatase 43 IU/L (42-121) 01/11/17 05:25 C-Reactive Protein 6.9 mg/dL (0-1.0) H 01/11/17 05:25 Total Protein 5.7 g/dL (6.7-8.2) L 01/11/17 05:25 Albumin 3.6 g/dL (3.2-5.5) 01/11/17 05:25 Globulin 2.1 g/dL (2.1-4.2) 01/11/17 05:25 Albumin/Globulin Ratio 1.7 (1.0-2.2) 01/11/17 05:25 Amylase 89 U/L (28-100) 01/11/17 05:25 Lipase 38 U/L (22-51) 01/10/17 18:30 TSH 0.96 uIU/mL (0.34-5.60) 01/11/17 05:25 Urine Color YELLOW 01/10/17 20:10 Urine Clarity CLEAR (CLEAR) 01/10/17 20:10 Urine pH 6.5 PH (5.0-7.5) 01/10/17 20:10 Ur Specific [place] 1.020 (1.002-1.030) 01/10/17 20:10 Urine Protein NEGATIVE mg/dL (NEGATIVE) 01/10/17 20:10 Urine Glucose (UA) NEGATIVE mg/dL (NEGATIVE) 01/10/17 20:10 Urine Ketones >=80 mg/dL (NEGATIVE) H 01/10/17 20:10 Urine Occult Blood NEGATIVE (NEGATIVE) 01/10/17 20:10 Urine Nitrite NEGATIVE (NEGATIVE) 01/10/17 20:10 Urine Bilirubin NEGATIVE (NEGATIVE) 01/10/17 20:10 Urine Urobilinogen 0.2 (NORMAL) E.U./dL (NORMAL) 01/10/17 20:10 Ur Leukocyte Esterase NEGATIVE (NEGATIVE) 01/10/17 20:10 Ur Microscopic Review NOT INDICATED 01/10/17 20:10 Urine Culture Comments NOT INDICATED 01/10/17 20:10
[2017-01-11 15:17] LABS: CHOL/HDL RATIO 2.6 (<4.4); CHOLESTEROL 169 mg/dL; HDL CHOLESTEROL 64 mg/dL; LDL/HDL RATIO 1.4 (<4.4); TRIGLYCERIDES 64 mg/dL; VLDL CHOLESTEROL 13 mg/dL
[2017-01-11] MEDS: CHOLECALCIFEROL 5,000 UNIT CAPSULE PO SCH (17:27)
[2017-01-11] MEDS ORDERED: MAGNESIUM SULFATE 1 GM in SODIUM CHLORIDE 0.9% 50 ML IV ONE (17:30)
[2017-01-12] MEDS: ACETAMINOPHEN 325 MG TABLET PO PRN (01:04)
[2017-01-12] MEDS: SODIUM CHLORIDE 0.9% 1,000 ML IV SCH (02:38)
[2017-01-12] MEDS: PIPERACILLIN/TAZOBACTAM 3.375 GM in SODIUM CHLORIDE 0.9% MINIBAG 100 ML IV SCH ×2 (03:57→10:09)
[2017-01-12] MEDS: SODIUM CHLORIDE FLUSH 0.9% 10 ML SYRINGE IVP SCH ×2 (05:34→11:07)
[2017-01-12 06:16] LABS: BASOPHILS % (AUTO) 0.5 %; EOSINOPHILS % (AUTO) 0.4 %; HCT - HEMATOCRIT 34.7 % (37.0-47.0); HGB - HEMOGLOBIN 11.9 g/dL (12.0-16.0); LYMPHOCYTES # (AUTO) 0.9 10^3/uL (1.5-3.5); LYMPHOCYTES % (AUTO) 12.1 %; MEAN CORPUSCULAR HEMOGLOBIN 31.7 pg (27.0-31.0); MEAN CORPUSCULAR HGB CONC 34.3 g/dL (32.0-36.0); MEAN CORPUSCULAR VOLUME 92.5 fL (81.0-99.0); MEAN PLATELET VOLUME 8.3 fL (7.9-10.8); MONOCYTES # (AUTO) 0.6 10^3/uL (0.0-1.0); MONOCYTES % (AUTO) 7.6 %; NEUTROPHILS # (AUTO) 5.8 10^3/uL (1.5-6.6); NEUTROPHILS % (AUTO) 79.4 %; RED BLOOD COUNT 3.75 10^6/uL (4.20-5.40); UNCORRECTED WHITE BLOOD COUNT 7.3 x10^3/uL; WHITE BLOOD COUNT 7.3 x10^3/uL (4.8-10.8)
[2017-01-12 06:29] LABS: ALBUMIN/GLOBULIN RATIO 1.6 (1.0-2.2); BILIRUBIN,TOTAL 1.6 mg/dL (0.2-1.0); CALCIUM 8.1 mg/dL (8.5-10.3); CREATININE 0.7 mg/dL (0.4-1.0); MAGNESIUM 1.9 mg/dL (1.7-2.8); PHOSPHORUS 2.6 mg/dL (2.5-4.6); POTASSIUM 3.4 mmol/L (3.5-5.0); TOTAL PROTEIN 5.2 g/dL (6.7-8.2)
[2017-01-12] MEDS: PANTOPRAZOLE 40 MG VIAL IVP SCH (06:32)
[2017-01-12] MEDS: LEVOTHYROXINE 25 MCG TABLET PO SCH (06:32)
--- NOTE | 2017-01-12 07:30 | PROVIDER PROGRESS NOTE ---
Assessment/Plan - Problem List (1) Abdominal pain Qualifiers: Abdominal location: epigastric Qualified Code(s): R10.13 - Epigastric pain Assessment/Plan: ongoing. patient did have some dinner last evening has some pain and nausea but no vomiting. no fever or chills, will get a HIDA scan to evaluate the gallbladder since possibly non functioning at this time. (2) Hypothyroidism Qualifiers: Hypothyroidism type: acquired Qualified Code(s): E03.9 - Hypothyroidism, unspecified Assessment/Plan: stable. TSH panel done. continue with synthroid home dosage. (3) Bipolar 2 disorder Assessment/Plan: stable. continue on psych medication from home. monitor for behavior changes - Current Meds Current Meds: Current Medications Generic Name Dose Route Start Last Admin Trade Name Freq PRN Reason Stop Dose Admin Acetaminophen 650 mg 01/10/17 22:40 01/12/17 01:04 Tylenol PO 650 mg Q4HR PRN Administration Pain 1 to 4 Calcium Citrate 500 mg 01/11/17 09:00 01/11/17 21:31 PO 500 mg BID FREDDY Administration Cholecalciferol 5,000 unit 01/11/17 17:30 01/11/17 17:27 Vitamin D3 PO 5,000 unit BID FREDDY Administration Enoxaparin Sodium 40 mg 01/11/17 09:00 01/11/17 08:45 Lovenox SUBQ 40 mg DAILY FREDDY Administration Sodium Chloride 1,000 mls @ 125 mls/hr 01/10/17 23:00 01/12/17 02:38 Normal Saline 0.9% IV 125 mls/hr .Q8H FREDDY Administration Piperacillin Sod/Tazobactam 100 mls @ 200 mls/hr 01/11/17 04:00 01/12/17 03:57 Sod 3.375 gm/ Sodium Chloride IV 200 mls/hr Q6H FREDDY Administration Lamotrigine 150 mg 01/11/17 09:00 01/11/17 08:44 Lamictal PO 150 mg DAILY FREDDY Administration Levothyroxine Sodium 50 mcg 01/11/17 07:00 01/12/17 06:32 Synthroid PO 50 mcg QDAC FREDDY Administration Morphine Sulfate 2 mg 01/10/17 22:40 01/11/17 21:30 Morphine IVP 2 mg Q2HR PRN Administration Pain 8 to 10 Pantoprazole Sodium 40 mg 01/10/17 23:00 01/12/17 06:32 Protonix IVP 40 mg BIDAC FREDDY Administration Polyethylene Glycol 17 gm 01/11/17 09:00 01/11/17 08:45 Miralax PO 17 gm DAILY FREDDY Administration Sodium Chloride 10 ml 01/10/17 22:40 01/11/17 00:37 Normal Saline Flush 0.9% IVP 10 ml PRN PRN Administration NEEDED PER PROVIDER ORDERS Sodium Chloride 10 ml 01/11/17 06:00 01/12/17 05:34 Normal Saline Flush 0.9% IVP Not Given Q8HR FREDDY Trazodone HCl 50 mg 01/11/17 21:00 01/11/17 21:31 Desyrel PO 50 mg QPM FREDDY Administration Venlafaxine HCl 75 mg 01/11/17 01:30 01/11/17 08:44 Effexor PO 75 mg DAILY FREDDY Administration - Lab Result Lab results reviewed: Yes Fish Bone Diagrams: 01/12/17 05:34 01/12/17 05:34 Other Lab Results: Abnormal Lab Results 01/10/17 01/10/17 01/10/17 18:30 18:30 20:10 WBC 13.0 x10^3/uL H x10^3/uL (4.8-10.8) RBC Hgb Hct MCH 31.1 pg H pg (27.0-31.0) Neut # Lymph # Band Neuts % (Manual) 17 % H % (0 - 10) Neutrophils # (Manual) 11.4 10^3/uL H 10^3/uL (1.5-6.6) Lymphocytes # (Manual) 1.2 10^3/uL L 10^3/uL (1.5-3.5) Potassium Estimated GFR (MDRD) Glucose 109 mg/dL H mg/dL (70-100) Calcium Total Bilirubin C-Reactive Protein Total Protein Globulin Urine Ketones >=80 mg/dL H mg/dL (NEGATIVE) 01/11/17 01/11/17 01/12/17 05:25 05:25 05:34 WBC RBC 3.95 10^6/uL L 10^6/uL 3.75 10^6/uL L 10^6/uL (4.20-5.40) (4.20-5.40) Hgb 11.9 g/dL L g/dL (12.0-16.0) Hct 36.2 % L % 34.7 % L % (37.0-47.0) (37.0-47.0) MCH 31.3 pg H pg 31.7 pg H pg (27.0-31.0) (27.0-31.0) Neut # 7.9 10^3/uL H 10^3/uL (1.5-6.6) Lymph # 0.9 10^3/uL L 10^3/uL 0.9 10^3/uL L 10^3/uL (1.5-3.5) (1.5-3.5) Band Neuts % (Manual) Neutrophils # (Manual) Lymphocytes # (Manual) Potassium Estimated GFR (MDRD) 71 L (>89) Glucose 123 mg/dL H mg/dL (70-100) Calcium 8.3 mg/dL L mg/dL (8.5-10.3) Total Bilirubin C-Reactive Protein 6.9 mg/dL H mg/dL (0-1.0) Total Protein 5.7 g/dL L g/dL (6.7-8.2) Globulin Urine Ketones 01/12/17 05:34 WBC RBC Hgb Hct MCH Neut # Lymph # Band Neuts % (Manual) Neutrophils # (Manual) Lymphocytes # (Manual) Potassium 3.4 mmol/L L mmol/L (3.5-5.0) Estimated GFR (MDRD) 83 L (>89) Glucose Calcium 8.1 mg/dL L mg/dL (8.5-10.3) Total Bilirubin 1.6 mg/dL H mg/dL (0.2-1.0) C-Reactive Protein Total Protein 5.2 g/dL L g/dL (6.7-8.2) Globulin 2.0 g/dL L g/dL (2.1-4.2) Urine Ketones - EKG Results EKG Interpreted Independently: No EKG Comparison: Unchanged from prior EKG - Diagnostic Imaging Results Diagnostic Imaging Results: positive: Prelim report reviewed, Read independently Diagnostic Imaging Results Comments: Pending HIDA scan results MRCP showed fluid in upper abdomen around head of pancreas with possible pancreatitis or duodenitis. gallbladder was enlarged with no stones. - Additional Planning Condition/Complexity: Improved My Orders: My Active Orders 01/11/17 17:30 Cholecalciferol [Vitamin D3] 5,000 unit PO BID 01/12/17 07:27 NPO [DIET] Hepatobiliary HIDA w/ Rx [NM] Stat 01/12/17 09:00 Docusate Sodium 250Mg Capsule [Colace 250Mg Capsule] 250 - 500 mg PO DAILY Senna [Senokot] 8.6 - 17.2 mg PO DAILY Consult/Specialty: Surgery Plan Discussed with:: Patient, Spouse, Case Management Time Spent: 31-60 minutes Subjective - Subjective Patient Reports: Feeling Better, Resting Comfortably, Abdominal Pain (still has some pain with regular meal last night. NPO today. no vomiting just nausea and pain.) Nursing Reports: Pain (mostly epigastic with eating anything, only nausea and pain) Objective Vital Signs: Vital Signs - 24 hr 01/11/17 01/11/17 01/11/17 08:49 12:13 16:00 Temperature 37.3 C 36.8 C 37.0 C Heart Rate [ 65 66 68 Brachial] Respiratory 18 18 16 Rate Blood Pressure 113/65 [Left Brachial artery] Blood Pressure 111/55 L 97/59 L [Right Brachial artery] O2 Saturation 94 92 97 01/11/17 01/12/17 01/12/17 20:16 00:57 02:09 Temperature 37.0 C 38.0 C H 36.8 C Heart Rate [ 67 74 Brachial] Respiratory 20 16 Rate Blood Pressure 119/69 100/60 [Left Brachial artery] Blood Pressure [Right Brachial artery] O2 Saturation 96 95 01/12/17 04:33 Temperature 37.2 C Heart Rate [ 74 Brachial] Respiratory 16 Rate Blood Pressure 122/62 [Left Brachial artery] Blood Pressure [Right Brachial artery] O2 Saturation 97 Oxygen O2 Source Room air Oxygen Flow Rate 2 I&O (Last 24 Hrs): Intake and Output Totals x24h 01/10/17 01/11/17 01/12/17 23:59 23:59 23:59 Intake Total 100 2722 1200 Output Total 1225 790 Balance 100 1497 410 General: Alert, Oriented x3, Cooperative, No acute distress HEENT: PERRLA Neck: Supple, No JVD, No thyromegaly Lymphatic: no adenopathy Neuro: Alert, CN 2-12 Grossly Intact, Oriented Times 3 Cardiovascular: Regular rate, Normal S1, Normal S2 Respiratory: Chest non-tender, No respiratory distress, Breath sounds nml Abdomen: Normal bowel sounds, Soft, Other (tenderness with deep palpation to epigastric region) Genitourinary: No Bleeding Extremities: No clubbing, No cyanosis, No edema, Normal pulses, No tenderness/ swelling Skin: No rashes, No breakdown, No significant lesion - Results Results: Laboratory Results WBC 7.3 x10^3/uL (4.8-10.8) 01/12/17 05:34 RBC 3.75 10^6/uL (4.20-5.40) L 01/12/17 05:34 Hgb 11.9 g/dL (12.0-16.0) L 01/12/17 05:34 Hct 34.7 % (37.0-47.0) L 01/12/17 05:34 MCV 92.5 fL (81.0-99.0) 01/12/17 05:34 MCH 31.7 pg (27.0-31.0) H 01/12/17 05:34 MCHC 34.3 g/dL (32.0-36.0) 01/12/17 05:34 RDW 13.0 % (12.0-15.0) 01/12/17 05:34 Plt Count 212 10^3/uL (130-450) 01/12/17 05:34 MPV 8.3 fL (7.9-10.8) 01/12/17 05:34 Neut # 5.8 10^3/uL (1.5-6.6) 01/12/17 05:34 Lymph # 0.9 10^3/uL (1.5-3.5) L 01/12/17 05:34 [place] # 0.6 10^3/uL (0.0-1.0) 01/12/17 05:34 Eos # 0.0 10^3/uL (0.0-0.7) 01/12/17 05:34 Baso # 0.0 10^3/uL (0.0-0.1) 01/12/17 05:34 Absolute Nucleated RBC 0.00 x10^3/uL 01/12/17 05:34 Band Neuts % (Manual) 17 % (0-10) H 01/10/17 18:30 Neutrophils # (Manual) 11.4 10^3/uL (1.5-6.6) H 01/10/17 18:30 Lymphocytes # (Manual) 1.2 10^3/uL (1.5-3.5) L 01/10/17 18:30 Monocytes # (Manual) 0.4 10^3/uL (0.0-1.0) 01/10/17 18:30 Nucleated RBCs 0.0 /100WBC 01/12/17 05:34 Platelet Estimate NORMAL (130-450,000) (NORMAL) 01/10/17 18:30 RBC Morph Micro Appear NORMAL APPEARANCE (NORMAL) 01/10/17 18:30 ESR 14 mm/Hr (0-30) 01/11/17 05:25 PT 12.5 secs (9.9-12.6) 01/11/17 05:25 INR 1.1 (0.8-1.2) 01/11/17 05:25 Sodium 140 mmol/L (135-145) 01/12/17 05:34 Potassium 3.4 mmol/L (3.5-5.0) L 01/12/17 05:34 Chloride 108 mmol/L (101-111) 01/12/17 05:34 Carbon Dioxide 25 mmol/L (21-32) 01/12/17 05:34 Anion Gap 7.0 (6-13) 01/12/17 05:34 BUN 7 mg/dL (6-20) 01/12/17 05:34 Creatinine 0.7 mg/dL (0.4-1.0) 01/12/17 05:34 Estimated GFR (MDRD) 83 (>89) L 01/12/17 05:34 Glucose 92 mg/dL (70-100) 01/12/17 05:34 Glycated Hemoglobin 5.0 % (4.6-6.2) 01/11/17 05:25 Estim Average Glucose 97 (70-100) 01/11/17 05:25 Lactic Acid 0.6 mmol/L (0.5-2.2) 01/11/17 05:25 Calcium 8.1 mg/dL (8.5-10.3) L 01/12/17 05:34 Phosphorus 2.6 mg/dL (2.5-4.6) 01/12/17 05:34 Magnesium 1.9 mg/dL (1.7-2.8) 01/12/17 05:34 Total Bilirubin 1.6 mg/dL (0.2-1.0) H 01/12/17 05:34 GGT 15 IU/L (8-38) 01/11/17 05:25 AST 41 IU/L (10-42) 01/12/17 05:34 ALT 42 IU/L (10-60) 01/12/17 05:34 Alkaline Phosphatase 49 IU/L (42-121) 01/12/17 05:34 C-Reactive Protein 6.9 mg/dL (0-1.0) H 01/11/17 05:25 Total Protein 5.2 g/dL (6.7-8.2) L 01/12/17 05:34 Albumin 3.2 g/dL (3.2-5.5) 01/12/17 05:34 Globulin 2.0 g/dL (2.1-4.2) L 01/12/17 05:34 Albumin/Globulin Ratio 1.6 (1.0-2.2) 01/12/17 05:34 Triglycerides 64 mg/dL (-149) 01/11/17 05:36 Cholesterol 169 mg/dL (-199) 01/11/17 05:36 LDL Cholesterol, Calc 92 mg/dL (-129) 01/11/17 05:36 VLDL Cholesterol 13 mg/dL 01/11/17 05:36 HDL Cholesterol 64 mg/dL (60-) 01/11/17 05:36 LDL/HDL Ratio 1.4 (<4.4) 01/11/17 05:36 Cholesterol/HDL Ratio 2.6 (<4.4) 01/11/17 05:36 Amylase 89 U/L (28-100) 01/11/17 05:25 Lipase 38 U/L (22-51) 01/10/17 18:30 Vitamin B12 203 pg/mL (180-914) 01/11/17 05:25 TSH 0.96 uIU/mL (0.34-5.60) 01/11/17 05:25 Urine Color YELLOW 01/10/17 20:10 Urine Clarity CLEAR (CLEAR) 01/10/17 20:10 Urine pH 6.5 PH (5.0-7.5) 01/10/17 20:10 Ur Specific [place] 1.020 (1.002-1.030) 01/10/17 20:10 Urine Protein NEGATIVE mg/dL (NEGATIVE) 01/10/17 20:10 Urine Glucose (UA) NEGATIVE mg/dL (NEGATIVE) 01/10/17 20:10 Urine Ketones >=80 mg/dL (NEGATIVE) H 01/10/17 20:10 Urine Occult Blood NEGATIVE (NEGATIVE) 01/10/17 20:10 Urine Nitrite NEGATIVE (NEGATIVE) 01/10/17 20:10 Urine Bilirubin NEGATIVE (NEGATIVE) 01/10/17 20:10 Urine Urobilinogen 0.2 (NORMAL) E.U./dL (NORMAL) 01/10/17 20:10 Ur Leukocyte Esterase NEGATIVE (NEGATIVE) 01/10/17 20:10 Ur Microscopic Review NOT INDICATED 01/10/17 20:10 Urine Culture Comments NOT INDICATED 01/10/17 20:10
[2017-01-12] MEDS ORDERED: CYANOCOBALAMIN 1,000 MCG/ML VIAL IM SCH (07:54)
--- NOTE | 2017-01-12 08:02 | Discharge Plan ---
Discharge Plan Disposition: 01 Home, Self Care Condition: Good Prescriptions: oxyCODONE [Roxicodone] 5 mg PO Q4HR PRN #30 tablet PRN Reason: Pain 5 to 7 Tramadol HCl [Ultram] 50 mg PO Q8HR #30 tablet Cholecalciferol [Vitamin D3] 5,000 unit PO BID #60 capsule Ondansetron Odt [Zofran] 4 mg TL Q6H PRN #20 tablet PRN Reason: Nausea / Vomiting Diet: Cardiac (see instructions for low fat no gluten and no dairy diet) Activity Restrictions: No Restrictions Shower Restrictions: No Driving Restrictions: No Weight Bearing: Full Weight Instruction Topics: Tramadol tablets, Ondansetron tablets, Alendronate Cholecalciferol tablets, Cholecalciferol capsules tablets or chewable dosage forms, Oxycodone tablets or capsules, Diet Gluten Free Celiac, Cholecystectomy Laparoscopic, Pancreatitis, Pancreatitis Acute Dc, Pancreatitis Chronic Dc, ED Gallbladder Infec Poss Additional Instructions or Follow Up instructions: Please continue to take all home medications as prescribed. You have been given pain medication, tramadol. Take this as prescribed. Take the zofran for nausea. Diet: you need to follow a low fat, gluten free and dairy free diet at least for the next 3-4 weeks so your body can detox from the inflammation. Information and diet instructions have been given to you. Drink as much water daily as you can. NO SODA or refined sugar drinks. Sweeteners such as Splenda and Truvia are ok. caffeine is ok but with limitation. try to eat no more than 100gm of carbs daily and at least 100gms of protein a day. Avoid alcohol at least for the next month. Activity: As tolerated and be sure to add at least 20-30 minutes of cardiovascular exercise 2 times a week. Sleep: get at least 7-8 hours a night. Melatonin over the counter is a great sleep aid. Follow up with your primary care provider within 1 week of discharge. you wlll need to make the appointment. Return to the ER if symptoms reoccur or you have chest pain or shortness of breath. Follow-Up Care: Dietitian No Smoking: If you smoke, Please STOP! Call for help. Follow-up with: Puja Bautista MD [Primary Care Provider] -
[2017-01-12] MEDS ORDERED: DOCUSATE SODIUM 250 MG CAPSULE PO SCH (09:00)
[2017-01-12] MEDS ORDERED: SENNA 8.6 MG TABLET PO SCH (09:00)
[2017-01-12] MEDS: CHOLECALCIFEROL 5,000 UNIT CAPSULE PO SCH (10:09)
[2017-01-12] MEDS: CALCIUM CITRATE 250 MG TABLET PO SCH (10:10)
[2017-01-12] MEDS: VENLAFAXINE 37.5 MG TABLET PO SCH (10:11)
[2017-01-12] MEDS: lamoTRIgine 100 MG TABLET PO SCH (10:11)
[2017-01-12] MEDS: ENOXAPARIN 40 MG/0.4 ML SYRINGE SUBQ SCH (10:12)
[2017-01-12] MEDS: POLYETHYLENE GLYCOL 3350 17 GM PACKET PO SCH (10:12)
--- NOTE | 2017-01-12 11:03 | PROVIDER PROGRESS NOTE ---
Assessment/Plan - Problem List (1) Abdominal pain Qualifiers: Abdominal location: epigastric Qualified Code(s): R10.13 - Epigastric pain Assessment/Plan: 66 yo female with presumed pancreatitis, pain minimal Advance diet as tolerated HIDA recommended Recommended Laparoscopic Cholecystectomy, Patient stated she was going to go for a second opinion at another Hospital. Patient can follow up as outpatient in surgery clinic next week with Dr. Marie if she doesn't go to another hospital. - Current Meds Current Meds: Current Medications Generic Name Dose Route Start Last Admin Trade Name Freq PRN Reason Stop Dose Admin Acetaminophen 650 mg 01/10/17 22:40 01/12/17 01:04 Tylenol PO 650 mg Q4HR PRN Administration Pain 1 to 4 Calcium Citrate 500 mg 01/11/17 09:00 01/12/17 10:10 PO 500 mg BID FREDDY Administration Cholecalciferol 5,000 unit 01/11/17 17:30 01/12/17 10:09 Vitamin D3 PO 5,000 unit BID FREDDY Administration Cyanocobalamin 1,000 mcg 01/12/17 07:54 01/12/17 10:10 Vitamin B-12 IM 01/12/17 12:00 1,000 mcg ONCE FREDDY Administration Docusate Sodium 250 - 500 mg 01/12/17 09:00 01/12/17 10:09 Colace 250mg Capsule PO 250 mg DAILY FREDDY Administration Enoxaparin Sodium 40 mg 01/11/17 09:00 01/12/17 10:12 Lovenox SUBQ 40 mg DAILY FREDDY Administration Sodium Chloride 1,000 mls @ 125 mls/hr 01/10/17 23:00 01/12/17 02:38 Normal Saline 0.9% IV 125 mls/hr .Q8H FREDDY Administration Piperacillin Sod/Tazobactam 100 mls @ 200 mls/hr 01/11/17 04:00 01/12/17 10:09 Sod 3.375 gm/ Sodium Chloride IV 200 mls/hr Q6H FREDDY Administration Lamotrigine 150 mg 01/11/17 09:00 01/12/17 10:11 Lamictal PO 150 mg DAILY FREDDY Administration Levothyroxine Sodium 50 mcg 01/11/17 07:00 01/12/17 06:32 Synthroid PO 50 mcg QDAC FREDDY Administration Morphine Sulfate 2 mg 01/10/17 22:40 01/11/17 21:30 Morphine IVP 2 mg Q2HR PRN Administration Pain 8 to 10 Pantoprazole Sodium 40 mg 01/10/17 23:00 01/12/17 06:32 Protonix IVP 40 mg BIDAC FREDDY Administration Polyethylene Glycol 17 gm 01/11/17 09:00 01/12/17 10:12 Miralax PO Not Given DAILY FREDDY Senna 8.6 - 17.2 mg 01/12/17 09:00 01/12/17 10:09 Senokot PO 17.2 mg DAILY FREDDY Administration Sodium Chloride 10 ml 01/10/17 22:40 01/11/17 00:37 Normal Saline Flush 0.9% IVP 10 ml PRN PRN Administration NEEDED PER PROVIDER ORDERS Sodium Chloride 10 ml 01/11/17 06:00 01/12/17 05:34 Normal Saline Flush 0.9% IVP Not Given Q8HR FREDDY Trazodone HCl 50 mg 01/11/17 21:00 01/11/17 21:31 Desyrel PO 50 mg QPM FREDDY Administration Venlafaxine HCl 75 mg 01/11/17 01:30 01/12/17 10:11 Effexor PO 75 mg DAILY FREDDY Administration - Lab Result Lab results reviewed: Yes Fish Bone Diagrams: 01/12/17 05:34 01/12/17 05:34 - Additional Planning My Orders: My Active Orders 01/12/17 05:54 BILIRUBIN,DIRECT [CHEM] Routine Plan Discussed with:: Patient Time Spent: 15-30 minutes Subjective - Subjective Patient Reports: Feeling Better (Pt seen at bedside. 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 Denies N/V/D/ F/C No current abdominal pain) Nursing Reports: No Complaints Objective Vital Signs: Vital Signs - 24 hr 01/11/17 01/11/17 01/11/17 12:13 16:00 20:16 Temperature 36.8 C 37.0 C 37.0 C Heart Rate [ 66 68 67 Brachial] Respiratory 18 16 20 Rate Blood Pressure 113/65 119/69 [Left Brachial artery] Blood Pressure 97/59 L [Right Brachial artery] O2 Saturation 92 97 96 01/12/17 01/12/1717 00:57 02:09 04:33 Temperature 38.0 C H 36.8 C 37.2 C Heart Rate [ 74 74 Brachial] Respiratory 16 16 Rate Blood Pressure 100/60 122/62 [Left Brachial artery] Blood Pressure [Right Brachial artery] O2 Saturation 95 97 01/12/17 08:44 Temperature 36.8 C Heart Rate [ 70 Brachial] Respiratory 18 Rate Blood Pressure 121/73 [Left Brachial artery] Blood Pressure [Right Brachial artery] O2 Saturation 98 Oxygen O2 Source Room air Oxygen Flow Rate 2 I&O (Last 24 Hrs): Intake and Output Totals x24h 01/10/17 01/11/17 01/12/17 23:59 23:59 23:59 Intake Total 100 2722 1200 Output Total 1225 790 Balance 100 1497 410 General: Alert, Oriented x3 Cardiovascular: Regular rate Respiratory: Breath sounds nml Abdomen: Normal bowel sounds (+BS, soft, NT, ND, No rebound or guarding. Negative Real's sign), Soft Extremities: No clubbing, No tenderness/swelling - Results Results: Laboratory Results WBC 7.3 x10^3/uL (4.8-10.8) 01/12/17 05:34 RBC 3.75 10^6/uL (4.20-5.40) L 01/12/17 05:34 Hgb 11.9 g/dL (12.0-16.0) L 01/12/17 05:34 Hct 34.7 % (37.0-47.0) L 01/12/17 05:34 MCV 92.5 fL (81.0-99.0) 01/12/17 05:34 MCH 31.7 pg (27.0-31.0) H 01/12/17 05:34 MCHC 34.3 g/dL (32.0-36.0) 01/12/17 05:34 RDW 13.0 % (12.0-15.0) 01/12/17 05:34 Plt Count 212 10^3/uL (130-450) 01/12/17 05:34 MPV 8.3 fL (7.9-10.8) 01/12/17 05:34 Neut # 5.8 10^3/uL (1.5-6.6) 01/12/17 05:34 Lymph # 0.9 10^3/uL (1.5-3.5) L 01/12/17 05:34 [place] # 0.6 10^3/uL (0.0-1.0) 01/12/17 05:34 Eos # 0.0 10^3/uL (0.0-0.7) 01/12/17 05:34 Baso # 0.0 10^3/uL (0.0-0.1) 01/12/17 05:34 Absolute Nucleated RBC 0.00 x10^3/uL 01/12/17 05:34 Band Neuts % (Manual) 17 % (0-10) H 01/10/17 18:30 Neutrophils # (Manual) 11.4 10^3/uL (1.5-6.6) H 01/10/17 18:30 Lymphocytes # (Manual) 1.2 10^3/uL (1.5-3.5) L 01/10/17 18:30 Monocytes # (Manual) 0.4 10^3/uL (0.0-1.0) 01/10/17 18:30 Nucleated RBCs 0.0 /100WBC 01/12/17 05:34 Platelet Estimate NORMAL (130-450,000) (NORMAL) 01/10/17 18:30 RBC Morph Micro Appear NORMAL APPEARANCE (NORMAL) 01/10/17 18:30 ESR 14 mm/Hr (0-30) 01/11/17 05:25 PT 12.5 secs (9.9-12.6) 01/11/17 05:25 INR 1.1 (0.8-1.2) 01/11/17 05:25 Sodium 140 mmol/L (135-145) 01/12/17 05:34 Potassium 3.4 mmol/L (3.5-5.0) L 01/12/17 05:34 Chloride 108 mmol/L (101-111) 01/12/17 05:34 Carbon Dioxide 25 mmol/L (21-32) 01/12/17 05:34 Anion Gap 7.0 (6-13) 01/12/17 05:34 BUN 7 mg/dL (6-20) 01/12/17 05:34 Creatinine 0.7 mg/dL (0.4-1.0) 01/12/17 05:34 Estimated GFR (MDRD) 83 (>89) L 01/12/17 05:34 Glucose 92 mg/dL (70-100) 01/12/17 05:34 Glycated Hemoglobin 5.0 % (4.6-6.2) 01/11/17 05:25 Estim Average Glucose 97 (70-100) 01/11/17 05:25 Lactic Acid 0.6 mmol/L (0.5-2.2) 01/11/17 05:25 Calcium 8.1 mg/dL (8.5-10.3) L 01/12/17 05:34 Phosphorus 2.6 mg/dL (2.5-4.6) 01/12/17 05:34 Magnesium 1.9 mg/dL (1.7-2.8) 01/12/17 05:34 Total Bilirubin 1.6 mg/dL (0.2-1.0) H 01/12/17 05:34 GGT 15 IU/L (8-38) 01/11/17 05:25 AST 41 IU/L (10-42) 01/12/17 05:34 ALT 42 IU/L (10-60) 01/12/17 05:34 Alkaline Phosphatase 49 IU/L (42-121) 01/12/17 05:34 C-Reactive Protein 6.9 mg/dL (0-1.0) H 01/11/17 05:25 Total Protein 5.2 g/dL (6.7-8.2) L 01/12/17 05:34 Albumin 3.2 g/dL (3.2-5.5) 01/12/17 05:34 Globulin 2.0 g/dL (2.1-4.2) L 01/12/17 05:34 Albumin/Globulin Ratio 1.6 (1.0-2.2) 01/12/17 05:34 Triglycerides 64 mg/dL (-149) 01/11/17 05:36 Cholesterol 169 mg/dL (-199) 01/11/17 05:36 LDL Cholesterol, Calc 92 mg/dL (-129) 01/11/17 05:36 VLDL Cholesterol 13 mg/dL 01/11/17 05:36 HDL Cholesterol 64 mg/dL (60-) 01/11/17 05:36 LDL/HDL Ratio 1.4 (<4.4) 01/11/17 05:36 Cholesterol/HDL Ratio 2.6 (<4.4) 01/11/17 05:36 Amylase 89 U/L (28-100) 01/11/17 05:25 Lipase 38 U/L (22-51) 01/10/17 18:30 Vitamin B12 203 pg/mL (180-914) 01/11/17 05:25 TSH 0.96 uIU/mL (0.34-5.60) 01/11/17 05:25 Urine Color YELLOW 01/10/17 20:10 Urine Clarity CLEAR (CLEAR) 01/10/17 20:10 Urine pH 6.5 PH (5.0-7.5) 01/10/17 20:10 Ur Specific [place] 1.020 (1.002-1.030) 01/10/17 20:10 Urine Protein NEGATIVE mg/dL (NEGATIVE) 01/10/17 20:10 Urine Glucose (UA) NEGATIVE mg/dL (NEGATIVE) 01/10/17 20:10 Urine Ketones >=80 mg/dL (NEGATIVE) H 01/10/17 20:10 Urine Occult Blood NEGATIVE (NEGATIVE) 01/10/17 20:10 Urine Nitrite NEGATIVE (NEGATIVE) 01/10/17 20:10 Urine Bilirubin NEGATIVE (NEGATIVE) 01/10/17 20:10 Urine Urobilinogen 0.2 (NORMAL) E.U./dL (NORMAL) 01/10/17 20:10 Ur Leukocyte Esterase NEGATIVE (NEGATIVE) 01/10/17 20:10 Ur Microscopic Review NOT INDICATED 01/10/17 20:10 Urine Culture Comments NOT INDICATED 01/10/17 20:10
[2017-01-12 12:14] VITALS: BP 138/86
--- NOTE | 2017-01-12 12:29 | DISCHARGE SUMMARY ---
DATE OF ADMISSION: 01/10/2017 DATE OF DISCHARGE: 01/12/2017 DISCHARGE PROVIDER: Kaelyn Saunders APRN ADMITTING DIAGNOSIS: Acute mid upper right abdominal pain with nausea and vomiting. DISCHARGE DIAGNOSES 1. Acute epigastric abdominal pain with duodenal inflammation and probable pancreatitis. 2. Chronic bipolar disorder. 3. Hypothyroidism, unspecified. PROCEDURES 1. MRCP. Impression shows mild edema adjacent to pancreatic head compatible with pancreatitis. Descen ding duodenal diverticulum with no choledocholithiasis or significant biliary dilatation. Distended g allbladder, no evidence of gallstones or wall thickening. 2. Abdominal pelvis CT. Impression shows a small amount of fluid adjacent to the pancreas head and du odenum. Differential would include duodenitis and pancreatitis, correlate with laboratory studies and presentation. Normal appendix. Large amount of stool in the colon. No obstruction. 3. Ultrasound of abdomen. Impression shows pericholecystic fluid. No cholelithiasis or gallbladder wa ll thickening. HOSPITAL COURSE AND TREATMENT: The patient is a pleasant 66-year-old female who presented to the ER w ith complaint of vomiting and nausea, mid upper epigastric pain that radiates to the right flank and around to the back. She had a significant medical history for bipolar disorder, hypothyroidism, osteo porosis, craniotomy with repair, brain aneurysm, polio as a child and oophorectomy with an ectopic pr egnancy. The patient stated that she had woken up that morning with a significant stomachache. She th ought it was mostly gas, but then when the pain became more severe she came to the ER. She has had a recent weight loss of approximately 20 pounds over the last month and a half. This was intentional. T hat morning she had only eaten a bowl of cereal before she went outside to walk her dog when the pain started. The patient had never had that type of pain before, except when she had a ruptured ectopic . At the time of evaluation in the ER, pain was 9/10 with nausea but no vomiting. The patien t was admitted for possible gallbladder/pancreatitis with a consult from Surgery. The patient also harris d a history of 2 glasses of wine every night, but she quit about 2 months prior to that. Both amylase and lipase levels were within normal limits at the time of admission. While the patient was being tr eated, she did undergo multiple diagnostic tests including MRCP, CT of the abdomen and pelvis, and ul trasound of the abdomen, which are noted above for impression. She received IV fluids, normal saline at 150 an hour for hydration. She was also placed on IV Zosyn for possible infection since there was fluid around the pancreas and gallbladder. She was put on pain management with IV morphine and Zofran for nausea, and placed on a n.p.o. diet. The patient was able to start tolerating food once her naus ea resolved. She tried a little dinner at night prior to the night before discharge, and she still co ntinued to have mild nausea. A HIDA scan was recommended to evaluate the gallbladder more closely; merari garza, on the date of discharge the patient changed her mind and said she would rather do it outpatie nt at a hospital she is more comfortable with, [facility]. Surgical team was notified of the katie ent's wishes, and HIDA scan was canceled. It was also recommended that she follow up with an EGD outp atient per Surgery. The patient continued on her Synthroid medication for hypothyroidism. She also co ntinued on Effexor with her bipolar disorder and on calcium and vitamin D supplementation for osteopo rosis. She continued on Lamictal for the bipolar disorder and trazodone to help with sleep at night. She is on estrogen therapy and Fosamax for bone loss as well. She did receive a dose of Fosamax befor e discharge. The patient remained afebrile and vital signs were stable during hospitalization. Vital signs at discharge were 36.8, 82 pulse, blood pressure 99/54, respirations 18, with a pulse oximetry 100% on room air. Both the patient and were at bedside when they requested to be able to be d ischarged without the followup for a HIDA scan. The patient stated she would prefer to do this as an outpatient and then get a second opinion. MEDICATIONS AT TIME OF DISCHARGE 1. Trazodone. 2. Effexor. 3. Fosamax. 4. Lamictal. 5. Premarin. 6. Synthroid. 7. Oxycodone. 8. Ultram. 9. Vitamin D3. 10. Zofran. PHYSICAL EXAMINATION CONSTITUTIONAL: The patient is alert, in no acute distress. EYES: Pupils are equal, round and react to light and accommodation. Conjunctivae and sclerae was fannie cteric, not injected. ENT: Nares are patent. No nasal discharge. Oropharynx with no masses, exudates or lesions. Mucous mem branes are moist. NECK: Supple. No thyromegaly. CARDIOVASCULAR: S1, S2 noted. No gallops, murmurs or rubs. Normal PMI. No JVD. GASTROINTESTINAL: Abdomen was soft, nontender. Bowel sounds noted. No guarding or rebound. SKIN: Warm, dry, intact. Normal turgor. No evidence of rash, lesions, or cellulitis. HEMATOLOGIC: No active bleeding. The patient is hemodynamically stable. LYMPHATICS: No cervical, axillary, supraclavicular lymphadenopathy was noted. PSYCHIATRIC: Behavior is appropriate. Normal affect, pleasant mood and oriented x3. NEUROLOGIC: She is alert, GCS 15. Sensory is intact. Cranial nerves intact. HEMATOLOGIC: No active bleeding. The patient is hemodynamically stable. LYMPHATICS: No cervical, axillary, supraclavicular lymphadenopathy is noted. MUSCULOSKELETAL: The patient has full range of motion with upper and lower extremities with no cyanos is. No edema to bilateral lower extremities. Motor is 5/5 bilaterally. INSTRUCTIONS FOR DISCHARGE AND FOLLOWUP 1. Activity. To be continued as tolerated. Continue to get exercise throughout the week, 3/5 days for cardiovascular exercise is preferred. Take frequent rest breaks as needed and be sure to get at leas t 7-8 hours of sleep at night. Melatonin is a good sleep aid [id number]. 2. Diet. Please continue to follow a noninflammatory diet. Please avoid dairy and gluten if possible. Even provided nutritional information regarding this and continue with weight loss. Avoid soda, limi t caffeine, and drink more water throughout the day. 3. Followup. Please do follow up with your primary care provider within 1 week of discharge. You have also been provided prescriptions for pain management and for nausea. Please continue to take these m edications as prescribed. 4. If you should experience shortness of breath or chest pain, please do call 911 or return to the [facility] ER. The patient verbally understood all instructions that were given to her at bedside, and the p atient both received educational and instructions for discharge. The patient was stable, alert, orien teresa, and vital signs were stable, and able to be safely discharged home. STATUS: The patient remains a FULL CODE STATUS at time of discharge. Time spent on discharge, education planning and assessment was 50 minutes. JOB #: [id number] EXT JOB #:[id number]
[2017-01-13] MEDS ORDERED: ALENDRONATE 70 MG TABLET PO SCH (07:00)
== END 2017-01-12 12:24 | disposition home or self-care (01) ==
LOC: ED 17:36 → MS 22:40
PROVIDERS: ADMIT Internal Medicine; ATTEND Nurse Practitioner
DX: K29.80 Duodenitis without bleeding (principal); F31.81 Bipolar II disorder; E03.9 Hypothyroidism, unspecified; K59.03 Drug induced constipation; T50.905A Adverse effect of unspecified drugs, medicaments and biological substances, initial encounter; M81.0 Age-related osteoporosis without current pathological fracture; Z86.12 Personal history of poliomyelitis; Z90.721 Acquired absence of ovaries, unilateral; Z79.818 Long term (current) use of other agents affecting estrogen receptors and estrogen levels; Z86.79 Personal history of other diseases of the circulatory system; Z79.82 Long term (current) use of aspirin; Z79.899 Other long term (current) drug therapy
CPT/HCPCS: 36415; 74177; 74181; 76705; 80053; 80061; 81003; 82150; 82248; 82306; 82607; 82977; 83036; 83605; 83690; 83735; 84100; 84443; 85025; 85610; 85651; 86140; 96361; 96365; 96366; 96367; 96372; 96375; 96376; 99283; 99285; A9270; G0378; J1650; J7040; Q9967; 81001; 87086; 99284